=== PATIENT | female | born 1955 | race Caucasian/White ===

== ENCOUNTER 2022-06-25 12:46 | Outpatient (REF) | payer BC, SELFPAY ==
--- NOTE | ~2022-06-25 | XR_ITS ---
EXAMINATION: XR KNEES, BILATERAL AP STANDING XR KNEE, LEFT CLINICAL INFORMATION: Pain in left knee. COMPARISON: None. TECHNIQUE: AP upright view of both knees. Lateral and patella view of left knee. FINDINGS: LEFT KNEE: Medial Compartment: There are marginal osteophytes in the medial compartment with slight joint space narrowing indicative of ewmu-eb-emrrmulf osteoarthritis. Lateral Compartment: Small marginal osteophytes without joint space narrowing indicative of mild osteoarthritis. Patellofemoral Compartment: There are marginal osteophytes with mild joint space narrowing indicative of wusw-zd-ftrybrpb osteoarthritis. No effusion. 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 LIMITED AP UPRIGHT RIGHT KNEE: In the medial compartment, there are marginal osteophytes with slight joint space narrowing indicative of bone hjpc-ih-yrznfuck osteoarthritis. Lateral compartment is unremarkable. Patellar compartment is not assessed on this AP projection. 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 XR/XR knee LT 2V IMPRESSION: LEFT KNEE: Osteoarthritis. Osteopoikilosis. RIGHT KNEE LIMITED: Osteoarthritis. Osteopoikilosis.
--- NOTE | ~2022-06-25 | XR_ITS ---
EXAMINATION: XR KNEES, BILATERAL AP STANDING XR KNEE, LEFT CLINICAL INFORMATION: Pain in left knee. COMPARISON: None. TECHNIQUE: AP upright view of both knees. Lateral and patella view of left knee. FINDINGS: LEFT KNEE: Medial Compartment: There are marginal osteophytes in the medial compartment with slight joint space narrowing indicative of hwtw-ni-dxjhamdo osteoarthritis. Lateral Compartment: Small marginal osteophytes without joint space narrowing indicative of mild osteoarthritis. Patellofemoral Compartment: There are marginal osteophytes with mild joint space narrowing indicative of peer-ri-glbkdhao osteoarthritis. No effusion. 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 LIMITED AP UPRIGHT RIGHT KNEE: In the medial compartment, there are marginal osteophytes with slight joint space narrowing indicative of bone xcma-ef-sxrpxfdh osteoarthritis. Lateral compartment is unremarkable. Patellar compartment is not assessed on this AP projection. 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
== END 2022-06-25 12:47 | disposition home or self-care (01) ==
LOC: HO.HOSX 12:46
PROVIDERS: Visit Provider Physician Assistant
DX: M25.562 Pain in left knee (principal); M25.561 Pain in right knee
CPT/HCPCS: 73560; 73565

== ENCOUNTER 2022-11-08 05:51 | Outpatient (REF) | payer MEDICARE, SELFPAY | END 2022-11-08 05:52 | disposition home or self-care (01) | LOC: HO.HOSX 05:51 | PROVIDERS: Visit Provider Physician Assistant | DX: Z13.89 Encounter for screening for other disorder (principal) ==

== ENCOUNTER 2025-01-21 08:41 | Outpatient (REF) | payer MEDICARE, SELFPAY ==
--- NOTE | ~2025-01-21 | XR_ITS ---
EXAMINATION: XR KNEE 3 VIEWS LEFT HISTORY: M25.562 - Pain in left knee COMPARISON: Comparison is made with the prior examination dated 06/25/2022. FINDINGS: Standing AP views of both knees and lateral and sunrise patellar views of the left knee are submitted. Again seen are findings of osteopoikilosis. There is no fracture or dislocation. There is moderate osteoarthritis of the medial patellofemoral compartments, with joint space narrowing and osteophyte formation. There is moderate osteoarthritis of the medial compartment of the right knee. The soft tissues are unremarkable. There is no joint effusion. XR/XR knee LT 3V IMPRESSION: Moderate osteoarthritis of the medial patellofemoral compartments. Electronically signed by: Cordell Nguyen MD 01/22/2025 08:15 AM EDT
--- OUTSIDE RECORDS SUMMARY | 2025-01-21 09:17 | XMS_ITS | Encounter Summary ---
Author Organization [facility] Address [address] [place] [address] Phone Care Team Providers Care Oyster Opener Name Role Phone Nan Diaz PA-C Primary Care Provider [phone] Encounter Details Date Type Department Care Team (Late st Contact Info) Description 04/03/2024 Documentation Only [facility] [address] [place] [address] Ollie Chin DO [address] [facility] [place] [address] Social History Tobacco Use Types Packs/Day Years Used Date Smoking Tobacco: Former Cigarettes Alcohol Use Standard Drinks/Week Comments Not Currently 0 (1 standard drink = 0.6 oz pur e alcohol) Comments Unknown Sex and Gender Information Value Date Recorded Sex Assigned at Not on file Legal Sex Female 10:27 AM EDT Gender Identity Not on file Sexual Orientation Not on file documented as of this encounter Plan of Treatment Upcoming Encounters Date Type Department Care Team (Late st Contact Info) Description 04/02/2025 2:15 PM EDT Office Visit [facility] [address] [place] [address] Ollie Chin DO [address] [facility] [place] [address] documented as of this encounter Visit Diagnoses Not on filedocumented in this encounter Care Teams Oyster Opener Relationship Specialty Start Date End Date Nan Diaz PA-C [address] [place], [place] [id number] PCP - General Internal Medicine 07/24/22 documented as of this encounter
--- OUTSIDE RECORDS SUMMARY | 2025-01-21 09:17 | XMS_ITS | Continuity of Care Document ---
Author Organization Karlos Castillo [facility] Address [address] [address],[address] [place] [address] Phone Care Team Providers Care Fire Patroller Name Role Phone Zoila Stephen RDH Unavailable Unavailab le Procedures Procedure Date Case Presentation, Detailed And [...] Date Provider Providers Copied on Encounter Karlos [facility], [address] [place] [address],[address], [place], [place], [id number], [place] tel:[phone] 2 [facility] Encounter for dental exam and cleaning w/o abnormal findings 9 Hailee Cummings. [address], [place], [id number]. tel:[phone] Karlos Castillo [facility], [address] [place] [address],[address], [place], [place], [id number], [place] tel:[phone] 2 [facility] Encounter for dental exam and cleaning w/o abnormal findings 8 No Information Karlos Castillo [facility], [address] [facility] [address], [place], [place], [id number], tel:[phone] 2 [facility] Encounter for dental exam and cleaning w/o abnormal findings 8 No Information Karlos Castillo [facility], [address] [facility] [address] [address], [place], [place], [id number], tel:[phone] 2 [facility] Encounter for dental [...]
--- OUTSIDE RECORDS SUMMARY | 2025-01-21 09:17 | XMS_ITS | Clinical Summary ---
Author Organization [facility], Address [address] [place] [address] [place] [address] Phone Care Team Providers Care Senior Audit Manager Name Role Phone Nan Diaz PA-C Primary Care Provider [phone] Allergies Active Allergy Reactions Criticality Noted Date Comments Amoxicillin Other (see comments) High 08/11/2007 Dust Mite Extract Other (see comments) 03/31/20 09 Metronidazole 06/16/2019 Molds & Smuts Other (see comments) 03/31/2009 Peanut Butter Flavoring Agent (Non-Screening) High 06/25/2016 Penicillins Other (see comments) High 08/11/2007 Other reaction(s): hives Leni [place] Other (see comments) 03/31/20 09 Medications amLODIPine (NORVASC) 2.5 MG tablet Take 2.5 mg by mouth 1 (one) time each day 2 Active clonazePAM (KlonoPIN) 1 MG tablet Take 1 mg by mouth 2 Active DULoxetine (CYMBALTA) [address] capsule Take by mouth 1 (one) time each day 2 Active lamoTRIgine (LaMICtal) 150 MG tablet TAKE 1 TABLET BY MOUTH ONCE A DAY FOR MOOD STABILIZATION & AUGMENTATION DULOXETINE FOR DEPRESSION 2 Active rosuvastatin (CRESTOR) 20 MG tablet TAKE 1 TABLET BY MOUTH DAILY,X90 DAYS,INSTR:AFTER SUPPER DISCONTINUE ATORVASTATIN 2 Active Active Problems Problem Noted Date Diagnosed Date Stage 3a chronic kidney disease 10/05/2022 Hyperlipidemia 03/04/2019 Hypertensive disorder 03/04/2019 Immunizations Immunization Administration Dates Next Due Influenza, Unspecified 07/10/2013 Td, Unspecified 07/09/2008 Family History Medical History Relation Comments Cancer Father Stroke Mother Cancer Mother's Sister Relation Status Comments Father Mother Mother's Sister Social History Tobacco Use Types Packs/Day Years Used Date Smoking Tobacco: Former Cigarettes Tobacco Cessation:Counseling Given: Not Answered Alcohol Use Standard Drinks/Week Comments Not Currently 0 (1 standard drink = 0.6 oz pur e alcohol) Comments Unknown Sex and Gender Information Value Date Recorded Sex Assigned at Not on file Legal Sex Female 10:27 AM EDT Gender Identity Not on file Sexual Orientation Not on file Last Filed Vital Signs Vital Sign Reading Time Taken Comments Blood Pressure 124/80 04/03/2024 2:05 PM EDT Pulse 72 04/03/2024 2:05 PM EDT Temperature - - Respiratory Rate - - Oxygen Saturation - - Inhaled Oxygen Concentration - - Weight - - Height - - Body Mass Index - - Plan of Treatment Upcoming Encounters Date Type Department Care Team (Late st Contact Info) Description 04/02/2025 2:15 PM EDT Office Visit [facility] [address] [place] [address] Ollie Chin DO [address] [facility] [place] [address] Health Maintenance Due Date Last Done Comments Breast Cancer Screening 1954 Pneumococcal Vaccine: 50+ Ye ars (1 of 2 - PCV) 1973 Colorectal Cancer Screening: Annual FOBT 2003 Colorectal Cancer Screening: Colonoscopy 2003 Colorectal Cancer Screening: Sigmoidoscopy 2003 Influenza Vaccine (Season Ended) 2025 07/10/20 13 Hepatitis B Vaccine Aged Out No longe r eligible based on patient's age to complete this topic Insurance [facility] Care Teams Senior Audit Manager Relationship Specialty Start Date End Date Nan Diaz PA-C [address] [place] [address] PCP - General Internal Medicine 07/24/22
== END 2025-01-21 08:42 | disposition home or self-care (01) ==
LOC: HO.HOSX 08:41
PROVIDERS: Visit Provider Physician Assistant
DX: M17.12 Unilateral primary osteoarthritis, left knee (principal)
CPT/HCPCS: 20610; 73562; 99212; J1010; J2003

== ENCOUNTER 2025-01-21 13:49 | Outpatient (AMB) | payer MEDICARE, SELFPAY ==
--- NOTE | 2025-01-21 14:02 | A.OFFVIS_ITS ---
Vital Signs 01/21/25 14:05 Height 5 ft 3.5 in Weight 175 lb BMI 30.5 Intake Visit Reasons: OV-LT knee pain f/u Intake Note: Loan is a 66 year old female who presents today for a follow up of left knee OA pain. Patient reports pain in both of her knees, stating she has had a few falls. Her last fall was when she was walking on an uneven ground to stairs when she fell on the stairs. She fell forward on her hands and knees, injuring her knees and her right shoulder. Her knees give out especially her left knee, states when they give out she will have severe pain. Her pain is located at the anterior aspect of knees. Since her last visit she was given exercises that she performed however they are getting difficult to perform. Finds little relief with taking Tylenol. Allergies amoxicillin Allergy (Verified 01/21/25 14:06) Hives ampicillin Allergy (Verified 01/21/25 14:06) Hives levothyroxine Allergy (Verified 01/21/25 14:06) Unknown metronidazole [From Flagyl] Allergy (Verified 01/21/25 14:06) sick Penicillins Allergy (Verified 01/21/25 14:06) Hives Medication List - Last Reconciled 01/21/25 by Jan Markham PA-C amlodipine 2.5 mg PO DAILY clonazepam 1 mg PO TID duloxetine 20 mg PO BID ketorolac 0.5% 1 drp ophthalmic (eye) TID lamotrigine 200 mg PO DAILY prednisolone acetate 1% 1 drp ophthalmic (eye) TID rosuvastatin 40 mg PO DAILY sumatriptan succinate mg PO HPI HPI OV-LT knee pain f/u: Details: 69-year-old female returns to the office today for a follow-up left knee pain. She was last seen in June of 2022 where she was given a home exercise program. She states over the last few weeks she has noticed worsening symptoms with stairs and prolonged walking. [facility] Medical History (Updated 08/03/22 @ 12:54 by Marsha Kim NP) Stage 3 chronic kidney disease Hypothyroid Borderline diabetes High blood cholesterol High blood pressure Social History Housing: Apartment e-Cigarette/Vaping Use: Never Used service: No Current occupational status: retired Current occupational exposures/hazards: No Hearing needs: Yes Review of Systems Const All systems reviewed & are unremarkable except as noted in HPI and below Physical Exam Vital Signs: BMI result Body Mass Index 30.5 Const General: cooperative and no acute distress Orientation/consciousness: patient oriented x3 Resp Effort & Inspection: normal respiratory effort and able to speak in complete sentences Cardio Peripheral pulses: Peripheral pulses 2+ throughout Neuro General: patient oriented x3 Extrem Other: Left knee skin intact, no erythema or joint effusion. Tenderness along the medial / lateral joint line. ROM full with crepitus. Negative steinmans. No ligamentous laxity. NVI. Office Procedures AMB Joint Injection/Aspiration Joint Injection/Aspiration Primary Site: left knee Prep: site was prepped using aseptic technique, ethochloride spray was applied and injection warnings given Injected: 80 mg of, DepoMedrol, with 8 mL of, 1% plain lidocaine and in the joint Approach Used: anterolateral Procedure: The patient tolerated the procedure well and there was some relief with the local anesthesia Coding 07469 - Glenohumeral/Tronchanteric Bursa/Intraarticular Procedure code (CPT) selection complete Results Reviewed Results Reviewed: X-rays of the left knee obtained in the office today and reviewed by me are significant for moderate arthritis through the medial and patellofemoral joint Assessment & Plan Assessment & Plan (1) Osteoarthritis of left knee: Code(s): M17.12 - Unilateral primary osteoarthritis, left knee Category: Medical Plan: We discussed options today which include steroid injection of the left knee to help with her inflammation and discomfort. She did consent to proceed with left knee steroid injection which was tolerated well. She can increase activities as tolerated. We discussed the importance of working with her home exercise program. She will see me back as needed unless symptoms arise. Orders: Orders XR knee LT 3V 01/21/25 M25.562 - Pain in left knee Coding Level of Care Code Est Pt Level 3 (84770) Complex EM visit Add On G2211 Diagnoses Osteoarthritis of left knee M17.12 CPT Codes Coding - Joint 7: 51190 - Glenohumeral/Tronchanteric Bursa/Intraarticular ([id number])
[2025-01-21 14:05] VITALS: BMI 30.5
--- OUTSIDE RECORDS SUMMARY | 2025-01-21 16:54 | XMS_ITS | Clinical Summary ---
Author Organization [facility], Address [address] [place] [address] [place] [address] Phone Care Team Providers Care Circulating Process Inspector Name Role Phone Nan Diaz PA-C Primary Care Provider [phone] Allergies Active Allergy Reactions Criticality Noted Date Comments Amoxicillin Other (see comments) High 08/11/2007 Dust Mite Extract Other (see comments) 03/31/20 09 Metronidazole 06/16/2019 Molds & Smuts Other (see comments) 03/31/2009 Peanut Butter Flavoring Agent (Non-Screening) High 06/25/2016 Penicillins Other (see comments) High 08/11/2007 Other reaction(s): hives Leni [place] Other (see comments) 03/31/20 09 Medications amLODIPine [...] Visit [facility] [address] [place] [phone] Ollie Chin DO [address] [facility] [place] [address] Health Maintenance Due Date Last Done Comments Breast Cancer Screening 1954 Pneumococcal Vaccine: 50+ Ye ars (1 of 2 - PCV) 1973 Colorectal Cancer Screening: Annual FOBT 2003 Colorectal Cancer Screening: Colonoscopy 2003 Colorectal Cancer Screening: Sigmoidoscopy 2003 Influenza Vaccine (Season Ended) 2025 07/10/20 13 Hepatitis B Vaccine Aged Out No longe r eligible based on patient's age to complete this topic Insurance [facility] Care Teams Circulating Process Inspector Relationship Specialty Start Date End Date Nan Diaz PA-C [address] [place] [address] PCP - General Internal Medicine 07/24/22
--- OUTSIDE RECORDS SUMMARY | 2025-01-21 16:54 | XMS_ITS | Continuity of Care Document ---
Author Organization Karlos Castillo [facility] Address [address] [address],[address] [place] [address] Phone Care Team Providers Care Zoo Director Name Role Phone Zoila Stephen RDH Unavailable [...] Date Provider Providers Copied on Encounter Karlos [facility], [address] [place] [address],[address], [place], [place], [id number], [place] tel:[phone] 2 [facility] Encounter for dental exam and cleaning w/o abnormal findings 9 Hailee Cummings. [address] [place], [place], [id number]. tel:[phone] Karlos Castillo [facility], [address] [place] [address],[address], [place], [place], [id number], [place] tel:[phone] 2 [facility] Encounter for dental exam and cleaning w/o abnormal findings 8 No Information Karlos Castillo [facility], [address] [facility] [address], [place], [place], [id number], tel:[phone] 2 [facility] Encounter for dental exam and cleaning w/o abnormal findings 8 No Information Karlos Castillo [facility], [address] [facility] [address], [place], [place], [id number], tel:[phone] 2 [facility] Encounter for dental [...]
--- OUTSIDE RECORDS SUMMARY | 2025-01-21 16:54 | XMS_ITS | Encounter Summary ---
Author Organization [facility] Address [address] [place] [address] Phone Care Team Providers Care End Touching Machine Operator Name Role Phone Nan Diaz PA-C Primary Care Provider [phone] Encounter Details Date Type Department Care Team (Late st Contact Info) Description 04/03/2024 Documentation Only [facility] [address] [place] [address] Ollie Chin DO [address] [facility] [place] [address] Social History Tobacco Use Types [...] Visit [facility] [address] [place] [address] Ollie Chin DO [address] [facility] [place] [address] documented as of this encounter Visit Diagnoses Not on filedocumented in this encounter Care Teams End Touching Machine Operator Relationship Specialty Start Date End Date Nan Diaz PA-C [address] [place], [place] [id number] PCP - General Internal Medicine 07/24/22 documented as of this encounter
== END 2025-01-21 15:31 | disposition home or self-care (01) ==
LOC: HO.HOS 13:50
PROVIDERS: Visit Provider Physician Assistant
DX: M17.12 Unilateral primary osteoarthritis, left knee (principal)
CPT/HCPCS: 20610; 99213

== ENCOUNTER → 2025-01-21 13:52 | Outpatient (BNV) | payer MEDICARE, SELFPAY | PROVIDERS: Visit Provider Radiology Diagnostic Radiology | DX: M17.12 Unilateral primary osteoarthritis, left knee (principal) | CPT/HCPCS: 73562 ==

== ENCOUNTER 2025-03-04 12:46 | Outpatient (REF) | payer MEDICARE, SELFPAY ==
--- NOTE | ~2025-03-04 | XR_ITS ---
EXAMINATION: XR SHOULDER 2 OR MORE VIEWS RIGHT HISTORY: M25.511 - Pain in right shoulder COMPARISON: There are no prior studies available for comparison. FINDINGS: Three views of the right shoulder are submitted. Osseous mineralization is normal. There is no fracture or dislocation. The joint spaces are preserved. The soft tissues are unremarkable. XR/XR shoulder RT min 2V IMPRESSION: Unremarkable examination of the right shoulder. Electronically signed by: Cordell Nguyen MD 03/04/2025 03:39 PM EDT
--- OUTSIDE RECORDS SUMMARY | 2025-03-04 12:49 | XMS_ITS | Clinical Summary ---
Author Organization [facility], Address [address] [place] [address] [place] [address] Phone Care Team Providers Care Sign Out Clerk Name Role Phone Nan Diaz PA-C Primary Care Provider [phone] Allergies Active Allergy Reactions Criticality Noted Date Comments Amoxicillin Other (see comments) High 08/11/2007 Dust Mite Extract Other (see comments) 03/31/20 09 Metronidazole 06/16/2019 Molds & Smuts Other (see comments) 03/31/2009 Peanut Butter Flavoring Agent (Non-Screening) High 06/25/2016 Penicillins Other (see comments) High 08/11/2007 Other reaction(s): hives Leni [place] Other (see comments) 03/31/20 09 Medications amLODIPine [...] Visit [facility] [address] [place] [id number] Ollie Chin DO [address] [facility] [place] [phone] Health Maintenance Due Date Last Done Comments Breast Cancer Screening 1955 Pneumococcal Vaccine: 50+ Ye ars (1 of 2 - PCV) 1973 Colorectal Cancer Screening: Annual FOBT 2003 Colorectal Cancer Screening: Colonoscopy 2003 Colorectal Cancer Screening: Sigmoidoscopy 2003 Influenza Vaccine (Season Ended) 2025 07/10/20 13 Hepatitis B Vaccine Aged Out No longe r eligible based on patient's age to complete this topic Insurance [facility] Care Teams Sign Out Clerk Relationship Specialty Start Date End Date Nan Diaz PA-C [address] [place] [phone] PCP - General Internal Medicine 07/24/22
== END 2025-03-04 12:47 | disposition home or self-care (01) ==
LOC: HO.HOSX 12:46
PROVIDERS: Visit Provider Physician Assistant
DX: M25.511 Pain in right shoulder (principal); M19.011 Primary osteoarthritis, right shoulder; S29.011A Strain of muscle and tendon of front wall of thorax, initial encounter; W18.30XA Fall on same level, unspecified, initial encounter; Y93.9 Activity, unspecified; Y92.9 Unspecified place or not applicable; Y99.9 Unspecified external cause status
CPT/HCPCS: 73030; 99212

== ENCOUNTER 2025-03-04 13:52 | Outpatient (AMB) | payer MEDICARE, SELFPAY ==
--- NOTE | 2025-03-04 13:54 | A.OFFVIS_ITS ---
Vital Signs 03/04/25 14:49 Height 5 ft 3.5 in Weight 175 lb BMI 30.5 Intake Visit Reasons: New prob-RT shoulder/clavicle pain Intake Note: Loan is a 69 year old right hand dominant female who presents today with complaints of right shoulder/clavicle pain. At her last visit for her left knee on 01/21/25 she complained of pain in her right shoulder from the same falls. Her PCP referred her to orthopedics. Patient reports she fell on outstretched arms causing her clavicle to pop out. She has had improvement in her pain however she continues to have intermittent pain in her clavicle area. No other treatment. 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 Allergies amoxicillin Allergy (Verified 03/04/25 14:55) Hives ampicillin Allergy (Verified 03/04/25 14:55) Hives levothyroxine Allergy (Verified 03/04/25 14:55) Unknown metronidazole [From Flagyl] Allergy (Verified 03/04/25 14:55) sick Penicillins Allergy (Verified 03/04/25 14:55) Hives Medication List - Last Reconciled 03/04/25 by Jan Markham PA-C amlodipine 2.5 mg PO DAILY clonazepam 1 mg PO TID duloxetine 20 mg PO BID ketorolac 0.5% 1 drp ophthalmic (eye) TID lamotrigine 200 mg PO DAILY prednisolone acetate 1% 1 drp ophthalmic (eye) TID rosuvastatin 40 mg PO DAILY sumatriptan succinate mg PO HPI HPI New prob-RT shoulder/clavicle pain: Details: 69-year-old female presents to the office today for pain in the right clavicle region. She mentions a fall she had where she landed on her hands and immediately felt a discomfort in her right sternal clavicular joint. She states the discomfort has resolved however she has some intermittent discomfort with activity. [facility] Medical History (Updated 03/04/25 @ 15:44 by Jan Markham PA-C) Stage 3 chronic kidney disease Hypothyroid Borderline diabetes High blood cholesterol High blood pressure Social History Housing: Apartment e-Cigarette/Vaping Use: Never Used service: No Current occupational status: retired Current occupational exposures/hazards: No Hearing needs: Yes Review of Systems Const All systems reviewed & are unremarkable except as noted in HPI and below Physical Exam Vital Signs: BMI result Body Mass Index 30.5 Const General: cooperative and no acute distress Orientation/consciousness: patient oriented x3 Resp Effort & Inspection: normal respiratory effort and able to speak in complete sentences Cardio Peripheral pulses: Peripheral pulses 2+ throughout Neuro General: patient oriented x3 Extrem Other: Right shoulder is normal to inspection there is no bony abnormality along the AC joint clavicle or sternoclavicular joint. She has no tenderness to palpation along these areas. She has full range of motion of the shoulder. Neurovascularly intact. Results Reviewed Results Reviewed: X-rays of the right shoulder obtained in the office today and reviewed by me show mild AC joint arthritis. No acute fractures or dislocations. Assessment & Plan Assessment & Plan (1) Sternoclavicular joint strain: Code(s): S29.011A - Strain of muscle and tendon of front wall of thorax, initial encounter Category: Medical Plan: reassurance was given to the patient there is no evidence of fracture or dislocation. I educated her on avoiding excessive lifting or repetitive motions that would irritate this area. I did recommend a course of physical therapy to work on motion and strength however she declined. If there is an increase in symptoms where she has concerns she can contact our office otherwise she will follow up as needed. Orders: Orders XR shoulder RT min 2V Today M25.511 - Pain in right shoulder Coding Level of Care Code Est Pt Level 3 (87458) Complex EM visit Add On G2211 Diagnoses Sternoclavicular joint strain S29.011A
[2025-03-04 14:49] VITALS: BMI 30.5
== END 2025-03-04 15:29 | disposition home or self-care (01) ==
LOC: HO.HOS 13:52
PROVIDERS: Visit Provider Physician Assistant
DX: S29.011A Strain of muscle and tendon of front wall of thorax, initial encounter (principal)
CPT/HCPCS: 99213; G2211

== ENCOUNTER → 2025-03-04 14:37 | Outpatient (BNV) | payer MEDICARE, SELFPAY | PROVIDERS: Visit Provider Radiology Diagnostic Radiology | DX: M25.511 Pain in right shoulder (principal) | CPT/HCPCS: 73030 ==

== ENCOUNTER 2025-07-12 14:34 | Outpatient (AMB) | payer MEDICARE, SELFPAY ==
--- OUTSIDE RECORDS SUMMARY | 2019-06-04 08:00 | XMS_ITS | Continuity of Care Document ---
Author Organization Karlos Castillo [facility] Address [address] [address],[address] [place] [address] Phone Care Team Providers Care Test Kitchen Home Economist Name Role Phone Unavailable Unavailable Unavailable Procedures [...] Provider Providers Copied on Encounter Karlos Castillo [facility], [address] [place] [address],[facility] [address], [place], [id number], tel:[phone] 2 [facility] Encounter for dental exam and cleaning w/o abnormal findings 9 No Information Karlos Castillo [facility], [address] [place] [address],[facility] 200, [place], [place], [id number], [place] tel:[phone] 2 [facility] Encounter for dental exam and cleaning w/o abnormal findings 8 No Information Karlos Castillo [facility], [address] [place] [address],[facility] 200, [place], [place], [id number], tel:[phone] 2 [facility] Encounter for dental exam and cleaning w/o abnormal findings 8 No Information Karlos Castillo [facility], [address] [facility],[address], [place], [place], [id number], tel:[phone] 2 [facility] Encounter for dental exam and cleaning w/o abnormal findings 8 No Information Family History Family Member Type Diagnosis Age At Onset No Information Payers Payer name Insurance type Covered green party ID Authoriza tion(s) No Information Social History [...]
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
[2025-07-12 15:10] VITALS: BMI 30.5
--- OUTSIDE RECORDS SUMMARY | 2025-07-12 17:01 | XMS_ITS | Encounter Summary ---
Author Organization [facility] Address [address] [place] [address] Phone Care Team Providers Care Audio Visual Coordinator Name Role Phone Cordell Cline MD Unavailable [phone] Mathew Gilbert MD, PhD Unavailable Unknown, Unknown Primary Care Provider Eldon dickerson Encounter Details Date Type Department Care Team (Late st Contact Info) Description 04/16/2025 Telephone [facility] Neurology [address] [place] [address] Xavier Galvez MD [address] [place] [address] [email or web address] Social History Tobacco Use Types Packs/Day Years Used Date Smoking Tobacco: Former Cigarettes 2 15 0 10/07/1966 - 10/07/1981 Smokeless Tobacco: Never Alcohol Use Standard Drinks/Week Comments Never 0 (1 standard drink = 0.6 oz pur e alcohol) Education Answer Date Recorded Are you interested in more education? Not on laura e 02/09/2023 Are you concerned about learning? Not on file 02/09/2023 No 02/09/2023 No 02/09/2023 Digital Access Answer Date Recorded No 03/02/2023 No 03/02/2023 Reliable internet access at home? Not on file 03/02/2023 Device with a working camera? Not on file Comments No Sex and Gender Information Value Date Recorded Sex Assigned at Not on file Legal Sex Female 5:34 PM EST Gender Identity Not on file Sexual Orientation Not on file documented as of this encounter Progress Notes * Cheryl Ewing - 04/16/2025 1:31 PM EDT Pt called and does not want to do the sleep study any where. She also says that the rizatriptan (MAXALT) 10 MG tablet is not helping her at all She says she needs something for the daily headaches that she is having and are getting worse. Is questioning if she should keep her upcoming appt with Dr Galvez documented in this encounter Plan of Treatment Not on file documented as of this encounter Visit Diagnoses Not on filedocumented in this encounter Additional Health Concerns Assessment Noted Time PHQ-2 Depression Total Score: 0 08/22/20 20 4:25 PM EST documented as of this encounter Care Teams Audio Visual Coordinator Relationship Specialty Start Date End Date Unknown, Unknown, MD PCP - General 11/08/21 Cordell Cline MD [address] [place] [address] [place] [address] Historical LMR Provider 12/18/18 Mathew Gilbert MD, PhD [address] [place] [address]. [address] [place] [address] [email or web address] Historical LMR Provider 12/18/18 documented as of this encounter Additional Source Comments The information contained in this document represents components of the legal health record. It is not the complete legal health record.[facility]
--- OUTSIDE RECORDS SUMMARY | 2025-07-12 17:01 | XMS_ITS | Encounter Summary ---
Author Organization [facility] Address [address] [place] [address] Phone Care Team Providers Care Telecommunications Line Installer Name Role Phone Nan Diaz PA-C Primary Care Provider [phone] Encounter Details Date Type Department Care Team (Late st Contact Info) Description 04/03/2024 Documentation Only [facility] [address] [place] [address] Ollie Chin DO [address] [facility] [place] [address] Social History Tobacco Use Types [...] Care Team (Late st Contact Info) Description 03/30/2026 2:00 PM EDT Office Visit [facility] [address] [place] [address] Ollie Chin DO [address] [facility] [place] [address] documented as of this encounter Visit Diagnoses Not on filedocumented in this encounter Care Teams Telecommunications Line Installer Relationship Specialty Start Date End Date Nan Diaz PA-C [address] [place], [place] [phone] PCP - General Internal Medicine 07/24/22 documented as of this encounter
--- OUTSIDE RECORDS SUMMARY | 2025-07-12 17:01 | XMS_ITS | Clinical Summary ---
Author Organization [facility] Address [address] [facility] [address] [place] [address] Phone Care Team Providers Care Pole Setter Name Role Phone Cordell Cline MD Unavailable [phone] Mathew Cohen MD, PhD Unavailable [phone] Unknown, Unknown Primary Care Provider Eldon dickerson Allergies Active Allergy Reactions Criticality Noted Date Comments Amoxicillin Unknown High 08/11/2007 Ampicillin Unknown High 08/11/2007 Metronidazole 06/16/2019 House Dust Unknown 03/31/2009 Levothyroxine 03/05/2025 Mold Extracts Unknown 03/31/2009 Holcomb Unknown 03/31/2009 Peanut Butter Flavor High 06/25/2016 Penicillins Medium 03/20/2010 Other reaction(s): hives Phs Other Free Text-See Phs Viewer 03/31/2009 DUST MITES; GRASS Pollen Extracts 02/29/2016 Sulfamethoxazole-Trimethoprim 2024 Tetracycline 03/05/2025 Medications biotin 5 mg Cap Take 5,000 capsules by mouth daily. 8 Active omeprazole (PRILOSEC) 20 mg TbEC Take 20 mg by mouth daily before breakfast. Active therapeutic multivitamin tablet Take 1 tablet by mouth daily. Active lamoTRIgine (LAMICTAL) 200 MG tablet Take 150 mg by mouth 2 (two) times a day. 0 Active clonazePAM (KLONOPIN) 1 MG tablet Take 1 mg by mouth 3 (three) times a day as needed. 1 Active DULoxetine (CYMBALTA) 60 MG capsule 60 mg. 1 Active amLODIPine (NORVASC) 2.5 MG tabletIndication s:Hypertensive disorder TAKE 1 TABLET DAILY 90 tablet 1 1 Active atorvastatin (LIPITOR) 40 MG tabletIndication s:Hyperlipidemia TAKE 1 TABLET (40 MG TOTAL) BY MOUTH DAILY. INCREASED DOSE 90 tablet 3 1 Active Additional Information Patient not taking.Reported on 03/05/2025 methylPREDNISolo ne (MEDROL, NICKIE,) 4 mg tablet follow package directions 21 tablet 1 Active Additional Information Patient not taking.Reported on 03/05/2025 rosuvastatin (CRESTOR) 20 MG tablet Take 20 mg by mouth daily. Active DULoxetine (CYMBALTA) 20 MG capsule Take 20 mg by mouth 2 (two) times a day. 5 Active rimegepant (NURTEC) 75 mg tablet Take 1 tablet (75 mg total) by mouth every other day. 16 tablet 5 5 Active riboflavin, vitamin B2, 400 mg Tab Take 1 tablet (400 mg total) by mouth daily. 90 tablet 3 5 Active rizatriptan (MAXALT) 10 MG tablet TAKE 1 TABLET BY MOUTH NEEDED FOR MIGRAINE (MAX DOSE 20MG DAILY). MAY REPEAT IN 2 HOURS IF NEEDED 9 tablet 2 5 Active Active Problems Problem Noted Date Diagnosed Date Pain in thoracic spine 11/27/2019 Assessment & Plan (11/27/2019 4:58 PM EST): Patient likely with pain secondary to arthritis in the thoracic spine. X-ray ordered. Physical therapy ordered. UA ordered to ensure that there is no nephrolithiasis. printed out a back brace image that can be bought on [employer]. Primary osteoarthritis of both knees 05/06/2019 Hypertensive disorder 03/04/2019 Hyperlipidemia 03/04/2019 Depressive disorder 03/04/2019 Encounters Date Type Department Care Team Description 06/07/2025 Refill [facility] Neurology [address] [place] [address] Xavier Galvez MD Medication Refill 05/24/2025 Telephone [facility] [place] [address] [facility] [address] [place] [address] Xavier Galvez MD 04/27/2025 2:15 PM EDT Telemedicine - audio only [facility] Neurology [address] [place] [address] Xavier Galvez MD Chronic migraine without aura with status migrainosus, not intractable (Primary Dx) 04/16/2025 Telephone [facility] Neurology [address] [place] [address] Xavier Galvez MD 04/15/2025 Telephone [facility] Neurology [address] [place] [address] Xavier Galvez MD from Last 3 Months Immunizations Immunization Administration Dates Next Due COVID-19 (Pre-07/29) Moderna Vaccine, mRNA, PF 0 10/23/2021 COVID-19 (Pre-07/29) Pfizer Vaccine, Bivalent 12 + 09/05/2022 Influenza, Unspecified Formulation 07/10/2013 Td, unspecified formulation 07/09/2008 Family History Medical History Relation Comments Brain cancer Father 1967 br ain cancer Cancer Father Family history o f cancer Celiac disease Father Coronary artery disease Mother FH: stanley ature coronary heart disease Stroke Mother Family history o f stroke, cerebrovascular accident after CABG @ 91 Depression Sister 1 Diabetes Sister 1 Diabetes mellitus Sister 1 Diabetes type I Sister 1 Family history o f diabetes mellitus type 1 Celiac disease Sister 2 Depression Sister 2 Depression Sister 3 Depression Sister 4 Depression Sister 5 Relation Status Comments Father 1967 Mother Sister 1 Other Sister 2 Other Sister 3 Other Sister 4 Other Sister 5 Other Social History Tobacco Use Types Packs/Day Years Used Date Smoking Tobacco: Former Cigarettes 2 15 0 10/07/1966 - 10/07/1981 Smokeless Tobacco: Never Tobacco Cessation:Counseling Given: Not Answered Alcohol Use Standard Drinks/Week Comments Never 0 [...] Sign Reading Time Taken Comments Blood Pressure 120/72 07/25/2021 12:54 PM EDT Pulse 79 07/25/2021 12:54 PM EDT Temperature 36.6 C (97.9 F) 04/22/2021 1:41 PM EDT Respiratory Rate 16 04/22/2021 1:41 PM EDT Oxygen Saturation 98% 07/25/2021 12:54 PM EDT Inhaled Oxygen Concentration - - Weight 76.2 kg (168 lb) 03/05/2025 1:14 PM EDT Height 158.1 cm (5' 2.24 ) 03/05/2025 1:14 PM ED T Body Mass Index 30.49 03/05/2025 1:14 PM EDT Plan of Treatment Health Maintenance Due Date Last Done Comments BLOOD PRESSURE 1955 HEPATITIS C SCREENING 1972 COLOGUARD 1999 COLONOSCOPY 1999 COLORECTAL CANCER SCREENING 1999 FIT TEST 1999 FOBT 1999 SIGMOIDOSCOPY 1999 VIRTUAL COLONOSCOPY 1999 PNEUMOCOCCAL VACCINES (50+ years) (1 of 1 - PCV) 2004 ZOSTER VACCINES (1 of 2) 2004 Adult Td,Tdap Booster 07/09/2018 07/09/2008 OSTEOPOROSIS SCREENING INITIAL (ONE-TIME) 2019 06/23/2013 DEPRESSION SCREENING 08/22/2021 08/22/2020 MAMMOGRAM 08/05/2022 08/05/2020, 06/08, 06/27/2018, Additional history exists INFLUENZA VACCINE (#1) 2025 07/10/2013 COVID-19 VACCINE ( season) 2025 09/05/2022, 10/23/2021, 04/13/2021, Additional history exists LIPID PANEL 09/02/2025 09/02/2020, 02/06, 03/05/2018, Additional history exists RSV VACCINE (1 - 1-dose 75+ series) 2029 SMOKING STATUS SCREENING (Once After 26 Yrs) Completed 03/05/2025 HEPATITIS A VACCINES Aged Out No long er eligible based on patient's age to complete this topic HIB VACCINES Aged Out No longer eligi ble based on patient's age to complete this topic MENINGOCOCCAL VACCINES (ACWY) Aged Out No longer eligible based on patient's age to complete this topic MENINGOCOCCAL VACCINES (B) Aged Out N o longer eligible based on patient's age to complete this topic Medical Devices Not on file Procedures Procedure Name Priority Date/Time Associated Diagnosis Comments LIPID PANEL Routine 09/02/2020 9:17 AM EST Annual physical exam BI MAMMOGRAM SCREENING WITH TOMOSYNTHESIS WITH CAD (BILATERAL) 08/05/2020 3:43 PM EDT BD DXA FOREARM Routine 06/23/2013 1:23 PM EDT from Last 3 Months or Most Recently Relevant to Health Maintenance Results * (ABNORMAL) Lipid panel (09/02/2020 9:17 AM EST) Cholesterol 220(H) <200 mg/dL [facility] Triglycerides 105 <150 mg/dL [facility] HDL Cholesterol 55 >50 mg/dL [facility] LDL Cholesterol Calculated 144(H) <100 mg/dL [facility] Chol HDL Ratio 4.0 <5.0 [facility] 09/02/2020 9:17 AM EST Isaac Hawkins MD LAB BLOOD ORDERABLES Final Resu lt Performing Organization Address City/State/[facility] Co de Phone Number [address] [address], [place] [phone] * Mammogram Screening With Tomosynthesis With CAD (Bilateral) (08/05/2020 3:43 PM EDT) Anatomical Region Laterality Modality Breast Left, Breast Right, Breast Bilateral Bila teral Mammography 08/05/2020 3:43 PM EDT Narrative 08/05/2020 3:49 PM EDT [address] [address] Mammography Report Signed Patient: Loan Martinez MR#: [id number] : 1955 Acct:[id number] Age/Sex: 64 / F ADM Date: 08/05/20 Loc: [facility] Attending Dr: Isaac Hawkins MD Ordering Physician: Isaac Hawkins Results: 0Incomple te: Need additional imaging evaluation Date of Service: 08/05/20 Follow Up: Immediate Follo w-Up Recommended Procedure(s): MM screening combo BI Accession Number(s): [id number] cc: Isaac Hawkins EXAMINATION: BILATERAL SCREENING MAMMOGRAPHY WITH DIGITAL TOMOSYNTHESIS HISTORY: Routine screening mammogram; no complaints today. COMPARISON: Prior exams dating back at least two years. TECHNIQUE: Bilateral digital craniocaudad and oblique projections. Computer aided detection utilized, using CAD : R2, version 2.1. Computer algorithm analysis of digital image data for lesion detection with further physician review for interpretation performed. Digital 3-D tomosynthesis images are obtained in CC and MLO projections. Breast Composition: (B) There are scattered fibroglandular densities. FINDINGS: 7 mm circumscribed mass is seen in the right outer breast. Otherwise, no suspicious masses, clustered microcalcifications or areas of architectural distortion are seen. MM/MM screening combo BI IMPRESSION: Mass in the right outer breast. The patient will be contacted by our department to schedule an appointment for a diagnostic mammogram and possible subsequent ultrasound. BI-RADS 0 - Incomplete: Need additional imaging evaluation. Follow-up code I workstation: Electronically signed by: Dr. Maxwell Madden Date: 08/05/20 Time: 15:48 Dictated By: Maxwell Madden MD Signed By: <Electronically signed by Maxwell Madden MD in OV> 08/05/20 1548 Procedure Note Maxwell Madden MD - 08/05/2020 [facility] [address] [place] [address] Mammography Report Signed Patient: Loan Martinez MR#: [id number] : 5Acct:[id number] Age/Sex: 64 / F ADMDate: 08/05/20 Loc: [facility] Attending Dr: Isaac Hawkins MD Ordering Physician: Isaac HawkinsResults: 0Incomple te: Need additional imaging evaluation Date of Service: 08/05/20Follow Up: Immediate Follo w-Up Recommended Procedure(s): MM screening combo BI Accession Number(s): [id number] cc: Isaac Hawkins EXAMINATION: BILATERAL SCREENING MAMMOGRAPHY WITH DIGITAL TOMOSYNTHESIS HISTORY: Routine screening mammogram; no complaints today. COMPARISON: Prior exams dating back at least two years. TECHNIQUE: Bilateral digital craniocaudad and oblique projections. Computer aided detection utilized, using CAD : R2, version 2.1. Computer algorithm analysis of digital image data for lesion detection with further physician review for interpretation performed. Digital 3-D tomosynthesis images are obtained in CC and MLO projections. Breast Composition: (B) There are scattered fibroglandular densities. FINDINGS: 7 mm circumscribed mass is seen in the right outer breast. Otherwise, no suspicious masses, clustered microcalcifications or areas of architectural distortion are seen. MM/MM screening combo BI IMPRESSION: Mass in the right outer breast. The patient will be contacted by our department to schedule an appointment for a diagnostic mammogram and possible subsequent ultrasound. BI-RADS 0 - Incomplete: Need additional imaging evaluation. Follow-up code I workstation: Electronically signed by: Dr. Maxwell Madden Date: 08/05/20 Time: 15:48 Dictated By: Maxwell Madden MD Signed By: <Electronically signed by Maxwell Madden MD in OV> 08/05/20 1548 us Isaac Hawkins MD IMG MG EXAMS Final Result * DXA Peripheral (06/23/2013 1:23 PM EDT) Anatomical Region Laterality Modality Bone Density Bone Density 06/23/2013 1:23 PM EDT Narrative 06/23/2013 1:23 PM EDT Exam Number: [id number] Report Status: Signed Type: BONE DENSITY Date/Time: 06/23/2013 13:23 Ordering Provider: DAVE COHEN REPORT: [address] [address] DXA BONE DENSITY STUDY HISTORY: Estrogen deficiency TECHNIQUE: Bone density measurements of the lumbar spine, hip, and forearm were obtained using a HOLOGIC QDR #[id number]. FINDINGS: L1-L4 BMD= 1.255 g/cm2, which is 120 % of the young adult controls for a T value of 1.9. This value is 139 % of age matched controls for a Z value of 3.2. Femoral neck BMD = 0.890 g/cm2, which is 105 % of young adult controls for a T value of 0.4. This value is 125 % of age matched controls for a Z value of 1.6. Forearm BMD = 0.624 g/cm2, which is 108 % of young adult controls for a T value of 0.8. This value is 121 % of age matched controls for a Z value of 2.0. IMPRESSION: Lumbar spine BMD is within normal range, with worsening since previous study of 04/23/07, with the BMD having worsened from 1.314 to 1.255. Femoral neck BMD is within normal range, with worsening since previous study of 04/23/07, with the BMD having worsened from 0.994 to 0.890. Forearm BMD is within normal range, with slight worsening since previous study of 04/23/07, with the BMD having worsened from 0.629 to 0.624. For every one standard deviation below the peak bone density mass (T score) the risk of osteoporotic bone fracture increases by 1.5 - 2 times. Note: A 10% increase in bone density corresponds to a 50% reduction in fracture risk. OLD STUDIES: LUMBAR SPINE SCAN DATE/AGE/ BMD/ T-SCORE / BMD CHANGE V BASELINE/ BMD CHANGE V PREVIOUS 06/23/13 57 1.255 1.9 -4.5% -4.5% 04/23/07 51 1.314 2.4 HIP SCAN DATE/AGE/ BMD/ T-SCORE / BMD CHANGE V BASELINE/ BMD CHANGE V PREVIOUS 06/23/13 57 0.890 0.4 -10.5% -10.5% 04/23/07 51 0.994 1.3 FOREARM SCAN DATE/AGE/ BMD/ T-SCORE / BMD CHANGE V BASELINE/ BMD CHANGE V PREVIOUS 06/23/13 57 0.624 0.8 -0.9% -0.9% 04/23/07 51 0.629 0.9 Electronically signed by: Christo Recinos MD Date: 06/23/13 Time: 13:36 Dictated: 06/23/13 133 Signed: 06/23/13 1336 ---- Electronic Signature on File ---- Signed By: Christo Recinos MD Procedure Note Sys, Conversion Provider Not In - 05/12/2015 Exam Number: [id number] Report Status: Signed Type: BONE DENSITY Date/Time: 06/23/2013 13:23 Ordering Provider: DAVE COHEN REPORT: [address] [id number] DXA BONE DENSITY STUDY HISTORY: Estrogen deficiency TECHNIQUE: Bone density measurements of the lumbar spine, hip, and forearm were obtained using a HOLOGIC QDR #[id number]. FINDINGS: L1-L4 BMD= 1.255 g/cm2, which is 120 % of the young adult controls for a T value of 1.9. This value is 139 % of age matched controls for a Z value of 3.2. Femoral neck BMD = 0.890 g/cm2, which is 105 % of young adult controls for a T value of 0.4. This value is 125 % of age matched controls for a Z value of 1.6. Forearm BMD = 0.624 g/cm2, which is 108 % of young adult controls for a T value of 0.8. This value is 121 % of age matched controls for a Z value of 2.0. IMPRESSION: Lumbar spine BMD is within normal range, with worsening since previous study of 04/23/07, with the BMD having worsened from 1.314 to 1.255. Femoral neck BMD is within normal range, with worsening since previous study of 04/23/07, with the BMD having worsened from 0.994 to 0.890. Forearm BMD is within normal range, with slight worsening since previous study of 04/23/07, with the BMD having worsened from 0.629 to 0.624. For every one standard deviation below the peak bone density mass (T score) the risk of osteoporotic bone fracture increases by 1.5 - 2 times. Note: A 10% increase in bone density corresponds to a 50% reduction in fracture risk. OLD STUDIES: LUMBAR SPINE SCAN DATE/AGE/ BMD/ T-SCORE / BMD CHANGE V BASELINE/ BMD CHANGE V PREVIOUS 06/23/13 57 1.255 1.9 -4.5% -4.5% 04/23/07 51 1.314 2.4 HIP SCAN DATE/AGE/ BMD/ T-SCORE / BMD CHANGE V BASELINE/ BMD CHANGE V PREVIOUS 06/23/13 57 0.890 0.4 -10.5% -10.5% 04/23/07 51 0.994 1.3 FOREARM SCAN DATE/AGE/ BMD/ T-SCORE / BMD CHANGE V BASELINE/ BMD CHANGE V PREVIOUS 06/23/13 57 0.624 0.8 -0.9% -0.9% 04/23/07 51 0.629 0.9 Electronically signed by: Christo Recinos MD Date: 06/23/13 Time: 13:36 Dictated: 06/23/13 1332 Signed: 06/23/13 1336 ---- Electronic Signature on File ---- Signed By: Christo Recinos MD us Mathew Cohen MD, PhD IMG BD BONE DENSITY DEXA Fi nal Result from Last 3 Months or Most Recently Relevant to Health Maintenance Insurance [facility] MEDICARE PPO BLUE [address] [address] [place] [address] MEDICARE PPO BLUE REPLACEMENT [address] [place] [id number] [address] [place] [id number] Advance Directives For more information, please contact: [phone] (9AM - 5PM 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 [address] [place] [address] [email or web address] Historical LMR Provider 12/18/18 Additional Source Comments The information contained in this document represents components of the legal health record. It is not the complete legal health record.[facility]
--- OUTSIDE RECORDS SUMMARY | 2025-07-12 17:01 | XMS_ITS | Encounter Summary ---
Author Organization [facility] Address [address] [place] [address] Phone Care Team Providers Care Hydropress Operator Name Role Phone Cordell Cline MD Unavailable [phone] Mathew Gilbert MD, PhD Unavailable [phone] Unknown, Unknown Primary Care Provider Eldon dickerson Encounter Details Date Type Department Care Team ([facility] st Contact Info) Description 05/24/2025 Telephone [facility] [address] [facility] [address] [place] [address] Xavier Galvez MD [address] [place] [address] [email or web address] Social History Tobacco Use Types Packs/Day Years [...] as of this encounter Plan of Treatment Not on file documented as of this encounter Visit Diagnoses Not on filedocumented in this encounter Additional Health Concerns Assessment Noted Time PHQ-2 Depression Total Score: 0 08/22/20 20 4:25 PM EST documented as of this encounter Care Teams Hydropress Operator Relationship Specialty Start Date End Date Unknown, Unknown, MD PCP - General 11/08/21 Cordell Cline MD [address] [place] [address] [place] [address] Historical LMR Provider 12/18/18 Mathew Gilbert MD, PhD [address] [place] [address]. [address] [place] [address] [email or web address] Historical LMR Provider 12/18/18 documented as of this encounter Additional Source Comments The information contained in this document represents components of the legal health record. It is not the complete legal health record.[facility]
--- OUTSIDE RECORDS SUMMARY | 2025-07-12 17:01 | XMS_ITS | Clinical Summary ---
Author Organization [facility], Address [address] [place] [address] [place] [address] Phone Care Team Providers Care Solid Waste Engineer Name Role Phone Nan Diaz PA-C Primary Care Provider [phone] Allergies Active Allergy Reactions Criticality Noted Date Comments Amoxicillin Other (see comments) High 08/11/2007 Dust Mite Extract Other (see comments) 03/31/20 09 Metronidazole 06/16/2019 Molds & Smuts Other (see comments) 03/31/2009 Peanut Butter Flavoring Agent (Non-Screening) High 06/25/2016 Penicillins Other (see comments) High 08/11/2007 Other reaction(s): hives Leni Heflin Other (see comments) 03/31/20 09 Medications clonazePAM (KlonoPIN) 1 MG tablet Take 1 [...] DAILY,X90 DAYS,INSTR:AFTER SUPPER DISCONTINUE ATORVASTATIN 2 Active candesartan (Atacand) 4 MG tabletIndicati ons:Hypertensi ve disorder,Stage 3a chronic kidney disease (HCC) Take 1 tablet (4 mg total) by mouth 1 (one) time each day 90 tablet 3 5 04/02/20 26 Active Active Problems Problem Noted Date Diagnosed Date Stage 3a chronic kidney disease 10/05/2022 Hyperlipidemia 03/04/2019 Hypertensive disorder 03/04/2019 Encounters Date Type Department Care Team Description 06/14/2025 Documentation Only [facility] [address] [place] [phone] Trina Gil MA from Last 3 Months Immunizations Immunization Administration Dates Next Due Influenza, [...] Sign Reading Time Taken Comments Blood Pressure 124/72 04/02/2025 3:09 PM EDT Pulse 70 04/02/2025 3:09 PM EDT Temperature - - Respiratory Rate - - Oxygen Saturation - - Inhaled Oxygen Concentration - - Weight - - Height - - Body Mass Index - - Plan of Treatment Upcoming Encounters Date Type Department Care Team (Late st Contact Info) Description 03/30/2026 2:00 PM EDT Office Visit [facility] [address] [place] [phone] Ollie Chin DO [address] [place] [address] [place] [phone] Health Maintenance Due Date Last Done Comments Breast Cancer Screening 1955 Pneumococcal Vaccine: 50+ Ye ars (1 of 2 - PCV) 1973 Colorectal Cancer Screening: Annual FOBT 2003 Colorectal Cancer Screening: Colonoscopy 2003 Colorectal Cancer Screening: Sigmoidoscopy 2003 Influenza Vaccine (#1) 2025 07/10/2013 Hepatitis B Vaccine Aged Out No longe r eligible based on patient's age to complete this topic Insurance [address] [place] [address] [facility] [address] [place] [id number] [facility] [address] [place] [address] Care Teams Solid Waste Engineer Relationship Specialty Start Date End Date Nan Diaz PA-C [address] [place] [address] PCP - General Internal Medicine 07/24/22
--- OUTSIDE RECORDS SUMMARY | 2025-07-12 17:01 | XMS_ITS | Clinical Summary ---
Author Organization [facility] Address [address] [place] [address] Care Team Providers Care Gradall Operator Name Role Phone Isaac Hawkins MD Primary Care Provider [phone] Allergies Active Allergy Reactions Criticality Noted Date Comments Amoxicillin 02/29/2016 Ampicillin 02/29/2016 Environmental 02/29/2016 Penicillins 02/29/2016 Medications DULoxetine HCl [address] Particles 1 CAPSULE DAILY Active Diazepam 5 MG Tab 1 TABLET TWICE DAILY Active Amitriptyline HCl 25 MG Tab 1 TABLET AT NIGHTTIME Active AmLODIPine Besylate 2.5 MG Tab 1 TABLET DAILY Activ e Atorvastatin Calcium 10 MG Tab 1 TABLET DAILY Activ e Aspirin 325 MG Tab 2 TABLETS EVERY 4 TO 6 HOURS NEEDED Active Ranitidine HCl 150 MG Cap 1 CAPSULE TWICE DAILY PRN Active traMADol HCl 50 MG Tab 1 TABLET EVERY 4 TO 6 HOURS NEEDED Active Rabeprazole Sodium 20 MG Tablet Delayed Response 1 TABLET EVERY MORNING Active Ophthalmic Irrigation Solution (RA STERILE EYE WASH) Solution None Entered Ac tive Saline Nasal [place] 0.65 % Solution None Entered Active Biotin 5000 MCG Tab 1 TABLET DAILY Activ e Active Problems No known active problems Social History Tobacco Use Types Packs/Day Years Used Date Smoking Tobacco: Never Alcohol Use Standard Drinks/Week Comments Not Asked 0 (1 standard drink = 0.6 oz pur e alcohol) Comments No Sex and Gender Information Value Date Recorded Sex Assigned at Not on file Legal Sex Female 9:42 PM EDT Gender Identity Not on file Sexual Orientation Not on file Last Filed Vital Signs Vital Sign Reading Time Taken Comments Blood Pressure 125/78 03/07/2019 3:40 PM EDT Pulse 71 03/07/2019 3:40 PM EDT Temperature 36.4 C (97.5 F) 03/07/2019 3:40 PM EDT Respiratory Rate 16 03/07/2019 3:40 PM EDT Oxygen Saturation 99% 03/07/2019 3:40 PM EDT Inhaled Oxygen Concentration - - Weight 92.1 kg (203 lb) 02/29/2016 3:09 PM EDT Height 157.5 cm (5' 2 ) 02/29/2016 3:09 PM EDT Body Mass Index 37.13 02/29/2016 3:09 PM EDT Plan of Treatment Health Maintenance Due Date Last Done Comments Hepatitis C Screening 1955 DTaP/Tdap/Td (1 - Tdap) 1972 Mammogram/Breast Imaging 1994 Pneumococcal 50+ years (1 of 1 - PCV) 2004 Zoster (Shingrix) (1 of 2) 2004 Bone Density 2019 COVID-19 Vaccine (1 - 2023-2 5 season) 2025 Influenza (#1) 2025 RSV (1 - 1-dose 75+ series) 2029 HPV Vaccine (No Doses Required) Completed Hep A Aged Out No longer eligi ble based on patient's age to complete this topic Hep B Aged Out No longer eligi ble based on patient's age to complete this topic Hib Aged Out No longer eligi ble based on patient's age to complete this topic Meningococcal ACWY Aged Out No longer eligible based on patient's age to complete this topic Pap Smear Discontinued Zoster (Zostavax) Discontinued Insurance MEDICARE PART B MEDICAID Care Teams Gradall Operator Relationship Specialty Start Date End Date Isaac Hawkins MD [facility] [address] [place] [id number] PCP - General Internal Medicine 03/07/19
--- OUTSIDE RECORDS SUMMARY | 2025-07-12 17:01 | XMS_ITS | Encounter Summary ---
Author Organization [facility] Address [address] [place] [address] Phone Care Team Providers Care Referral And Information Aide Name Role Phone Nan Diaz PA-C Primary Care Provider [phone] Encounter Details Date Type Department Care Team (Late st Contact Info) Description 06/14/2025 Documentation Only [facility] [address] [place] [address] Gloria Gil[place], [place] [address] [place] [address] Social History Tobacco Use Types Packs/Day Years [...] Visit [facility] [address] [place] [address] Ollie Chin DO [address] [place] [address] [place] [address] documented as of this encounter Visit Diagnoses Not on filedocumented in this encounter Care Teams Referral And Information Aide Relationship Specialty Start Date End Date Nan Diaz PA-C [address] [place] [address] [phone] PCP - General Internal Medicine 07/24/22 documented as of this encounter
== END 2025-07-12 15:14 | disposition home or self-care (01) ==
LOC: HO.HOS 14:34
PROVIDERS: Visit Provider Physician Assistant
DX: M75.22 Bicipital tendinitis, left shoulder (principal)
CPT/HCPCS: 99213; G2211

== ENCOUNTER → 2025-07-12 14:34 | Outpatient (BNVA) | payer MEDICARE, SELFPAY | PROVIDERS: Visit Provider Physician Assistant | DX: M75.22 Bicipital tendinitis, left shoulder (principal) | CPT/HCPCS: 99212 ==

== ENCOUNTER 2025-07-15 12:56 | Outpatient (REF) | payer MEDICARE, SELFPAY ==
--- OUTSIDE RECORDS SUMMARY | 2025-07-15 13:00 | XMS_ITS | Encounter Summary ---
Author Organization [facility] Address [address] [place] [address] Phone Care Team Providers Care Drum Loader And Unloader Name Role Phone Nan Diaz PA-C Primary Care Provider [phone] Encounter Details Date Type Department Care Team (Late st Contact Info) Description 06/14/2025 Documentation Only [facility] [address] [place] [address] [place], [place] [address] [place] [address] Social History Tobacco Use Types [...] Visit [facility] [address] [place] [address] Ollie Chin DO [address] [place] [address] [place] [address] documented as of this encounter Visit Diagnoses Not on filedocumented in this encounter Care Teams Drum Loader And Unloader Relationship Specialty Start Date End Date Nan Diaz PA-C [address] [place] [address] [phone] PCP - General Internal Medicine 07/24/22 documented as of this encounter
--- OUTSIDE RECORDS SUMMARY | 2025-07-15 13:00 | XMS_ITS | Encounter Summary ---
Author Organization [facility] Address [address] [place] [address] Phone Care Team Providers Care Tipple Greaser Name Role Phone Nan Diaz PA-C Primary Care Provider [phone] Encounter Details Date Type Department Care Team (Late st Contact Info) Description 04/03/2024 Documentation Only [facility] [address] [place] [address] Ollie Chin DO [address] [facility] [place] [address] Social History Tobacco Use Types [...] [facility] [address] [place] [address] Ollie Chin DO [address] [facility] [place] [address] documented as of this encounter Visit Diagnoses Not on filedocumented in this encounter Care Teams Tipple Greaser Relationship Specialty Start Date End Date Nan Diaz PA-C [address] [place], [place] [phone] PCP - General Internal Medicine 07/24/22 documented as of this encounter
--- OUTSIDE RECORDS SUMMARY | 2025-07-15 13:00 | XMS_ITS | Clinical Summary ---
Author Organization [facility] Address [address] [facility] [address] [place] [address] Phone Care Team Providers Care Telephone Service Representative Name Role Phone Cordell Cline MD Unavailable [phone] Mathew Cohen MD, PhD Unavailable [phone] Unknown, Unknown Primary Care Provider Eldon dickerson Allergies Active Allergy Reactions Criticality Noted Date Comments Amoxicillin Unknown High 08/11/2007 Ampicillin Unknown High 08/11/2007 Metronidazole 06/16/2019 House Dust Unknown 03/31/2009 Levothyroxine 03/05/2025 Mold Extracts Unknown 03/31/2009 [place] Unknown 03/31/2009 Peanut Butter Flavor High 06/25/2016 [...] brace image that can be bought on [employer]. Primary osteoarthritis of both knees 05/06/2019 Hypertensive disorder 03/04/2019 Hyperlipidemia 03/04/2019 Depressive disorder 03/04/2019 Encounters Date Type Department Care Team Description 06/07/2025 Refill [facility] Neurology [address] [place] [address] Xavier Galvez MD Medication Refill 05/24/2025 Telephone [facility] Sleep [place] [address] [facility] [address] [place] [address] Xavier Galvez MD 04/27/2025 2:15 PM EDT Telemedicine - audio only [facility] Neurology [address] [place] [address] Xavier Galvez MD Chronic migraine without aura with status migrainosus, not intractable (Primary Dx) 04/16/2025 Telephone [facility] Neurology [address] [place] [address] Xavier Galvez MD 04/15/2025 Telephone [facility] Neurology [address] [place] [address] Xavier Galvez MD from Last 3 Months [...] 9:17 AM EST) Cholesterol 220(H) <200 mg/dL [facility] Triglycerides 105 <150 mg/dL [facility] HDL Cholesterol 55 >50 mg/dL [facility] LDL Cholesterol Calculated 144(H) <100 mg/dL [facility] Chol HDL Ratio 4.0 <5.0 [facility] 09/02/2020 9:17 AM EST Isaac Hawkins MD LAB BLOOD ORDERABLES Final Resu lt Performing Organization Address City/State/[facility] Co de Phone Number [address] [address], [facility] [phone] * Mammogram Screening With Tomosynthesis With CAD (Bilateral) (08/05/2020 3:43 PM EDT) Anatomical Region Laterality Modality Breast Left, Breast Right, Breast Bilateral Bila teral Mammography 08/05/2020 3:43 PM EDT Narrative 08/05/2020 3:49 PM EDT [address] [address] Mammography Report Signed Patient: Loan Martinez MR#: [id number] : 1955 Acct:[id number] Age/Sex: 64 / F ADM Date: 08/05/20 Loc: [facility] Attending Dr: Isaac Hawkins MD Ordering Physician: Isaac Hawkins Results: 0Incomple te: Need additional imaging evaluation Date of Service: 08/05/20 Follow Up: Immediate Follo w-Up Recommended Procedure(s): MM screening combo BI Accession Number(s): [id number] cc: Isaac Hawkins EXAMINATION: BILATERAL SCREENING MAMMOGRAPHY [...] Procedure Note Maxwell Madden MD - 08/05/2020 [facility] [address] [place] [address] Mammography Report Signed Patient: Loan Martinez MR#: [id number] : 5Acct:[id number] Age/Sex: 64 / F ADMDate: 08/05/20 Loc: [facility] Attending Dr: Isaac Hawkins MD Ordering Physician: Isaac HawkinsResults: 0Incomple te: Need additional imaging evaluation Date of Service: 08/05/20Follow Up: Immediate Follo w-Up Recommended Procedure(s): MM screening combo BI Accession Number(s): [id number] cc: Isaac Hawkins EXAMINATION: BILATERAL SCREENING MAMMOGRAPHY [...] Narrative 06/23/2013 1:23 PM EDT Exam Number: [id number] Report Status: Signed Type: BONE DENSITY Date/Time: 06/23/2013 13:23 Ordering Provider: DAVE COHEN REPORT: [address] [address] DXA BONE DENSITY STUDY HISTORY: Estrogen deficiency TECHNIQUE: Bone density measurements of the lumbar spine, hip, and forearm were obtained using a HOLOGIC QDR #[id number]. FINDINGS: L1-L4 BMD= 1.255 g/cm2, which is [...] Provider Not In - 05/12/2015 Exam Number: [id number] Report Status: Signed Type: BONE DENSITY Date/Time: 06/23/2013 13:23 Ordering Provider: DAVE COHEN REPORT: [address] [address] DXA BONE DENSITY STUDY HISTORY: Estrogen deficiency TECHNIQUE: Bone density measurements of the lumbar spine, hip, and forearm were obtained using a HOLOGIC QDR #[id number]. 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 Dao. [address] [place] [address] [email or web address] Historical LMR Provider 12/18/18 Additional Source Comments The information contained in this document represents components of the legal health record. It is not the complete legal health record.[facility]
--- OUTSIDE RECORDS SUMMARY | 2025-07-15 13:00 | XMS_ITS | Encounter Summary ---
Author Organization [facility] Address [address] [place] [address] Phone Care Team Providers Care Wood Milling Machine Hand Name Role Phone Cordell Cline MD Unavailable [phone] Mathew Gilbert MD, PhD Unavailable [phone] Unknown, Unknown Primary Care Provider Eldon dickerson Encounter Details Date Type Department Care Team ([facility] st Contact Info) Description 05/24/2025 Telephone [facility] [address] [facility] [address] [place] [address] Xavier Galvez MD [address] [place] [address] [email or web address] Social History Tobacco Use Types Packs/Day Years [...] documented as of this encounter Care Teams Wood Milling Machine Hand Relationship Specialty Start Date End Date Unknown, Unknown, MD PCP - General 11/08/21 Cordell Cline MD [address] [place] [address] [place] [address] Historical LMR Provider 12/18/18 Mathew Gilbert MD, PhD [address] [place] [address]. Dao. [address] [place] [address] [email or web address] Historical LMR Provider 12/18/18 documented as of this encounter Additional Source Comments The information contained in this document represents components of the legal health record. It is not the complete legal health record.[facility]
--- OUTSIDE RECORDS SUMMARY | 2025-07-15 13:00 | XMS_ITS | Clinical Summary ---
Author Organization [facility] Address [address] [place] [address] Care Team Providers Care Office Equipment Mechanic Name Role Phone Isaac Hawkins MD Primary Care Provider [phone] Allergies Active Allergy Reactions Criticality Noted Date [...] Solution None Entered Ac tive Saline Nasal [place] 0.65 % Solution None Entered Active Biotin [...] Bone Density 2019 COVID-19 Vaccine (1 - 2024-2 6 season) 2025 Influenza (#1) 2025 RSV (1 [...] Insurance MEDICARE PART B MEDICAID Care Teams Office Equipment Mechanic Relationship Specialty Start Date End Date Isaac Hawkins MD [facility] [address] [place] [phone] PCP - General Internal Medicine 03/07/19
--- OUTSIDE RECORDS SUMMARY | 2025-07-15 13:00 | XMS_ITS | Clinical Summary ---
Author Organization [facility] Address [address] [place] [address] [place] [address] Phone Care Team Providers Care Application Penetration Tester Name Role Phone Nan Diaz PA-C Primary Care Provider [phone] Allergies Active Allergy Reactions Criticality Noted Date Comments Amoxicillin Other (see comments) High 08/11/2007 Dust Mite Extract Other (see comments) 03/31/20 09 Metronidazole 06/16/2019 Molds & Smuts Other (see comments) 03/31/2009 Peanut Butter Flavoring Agent (Non-Screening) High 06/25/2016 Penicillins Other (see comments) High 08/11/2007 Other reaction(s): hives Leni Harriman Other (see comments) 03/31/20 09 Medications clonazePAM [...] Only [facility] [address] [facility] [address] [place] [phone] Trina Gil MA from Last 3 Months [...] Visit [facility] [address] [place] [address] Ollie Chin DO [address] [place] [address] [place] [phone] Health Maintenance Due Date Last Done Comments Breast Cancer Screening 1954 Pneumococcal Vaccine: 50+ Ye ars (1 of 2 - PCV) 1973 Colorectal Cancer Screening: Annual FOBT 2003 Colorectal Cancer Screening: Colonoscopy 2003 Colorectal Cancer Screening: Sigmoidoscopy 2003 Influenza Vaccine (#1) 2025 07/10/2013 Hepatitis B Vaccine Aged Out No longe r eligible based on patient's age to complete this topic Insurance [address] [place] [address] [facility] [address] [place] [address] [facility] [address] [place] [address] Care Teams Application Penetration Tester Relationship Specialty Start Date End Date Nan Diaz PA-C [address] [place] [address] PCP - General Internal Medicine 07/24/22
--- OUTSIDE RECORDS SUMMARY | 2025-07-15 13:00 | XMS_ITS | Encounter Summary ---
Author Organization [facility] Address [address] [place] [address] Phone Care Team Providers Care Receiving Worker Name Role Phone Cordell Cline MD Unavailable [phone] Mathew Gilbert MD, PhD Unavailable [phone] Unknown, Unknown Primary Care Provider Eldon dickerson Encounter Details Date Type Department Care Team (Late st Contact Info) Description 04/16/2025 Telephone [facility] Neurology [address] [place] [address] Xavier Galvez MD [address] [place] [address] [email or web address] Social History Tobacco Use Types Packs/Day Years [...] documented as of this encounter Care Teams Receiving Worker Relationship Specialty Start Date End Date Unknown, Unknown, MD PCP - General 11/08/21 Cordell Cline MD [address] [place] [address] [place] [address] Historical LMR Provider 12/18/18 Mathew Gilbert MD, PhD [address] [place] [address]. [address] [place] [address] [email or web address] Historical LMR Provider 12/18/18 documented as of this encounter Additional Source Comments The information contained in this document represents components of the legal health record. It is not the complete legal health record.[facility]
--- NOTE | 2025-07-15 13:01 | EMG_ITS ---
Chief complaint: Started as pain on left antecubital area from an IV 2 years ago. Complains of pain going down the hand with tingling on 5th digit. Reason for referral: Evaluate for ulnar neuropathy Referred by: Narendra PAYAN Procedure done: Left upper extremity NCS/EMG Precautions and/or limitations: None The limb temperature was monitored continuously and remained between 32-36 degrees C during the performance of the NCS. Nerve Conduction Studies Anti Sensory Summary Table ?Stim Site NR Onset (ms) Norm Onset (ms) Peak (ms) Norm Peak (ms) O-P Amp (?V) Norm O-P Amp Site1 Site2 Delta-0 (ms) Dist (cm) Sean (m/s) Norm Sean (m/s) Left Median Anti Sensory (2nd Digit) Wrist ? 3.6 4.5 <3.6 22.7 >10 Wrist 2nd Digit 3.6 14.0 39 Left Radial Anti Sensory (Thumb) Forearm ? 1.6 2.2 <3.1 25.4 Forearm Thumb 1.6 0.0 Left Ulnar Anti Sensory (5th Digit) Wrist ? 2.7 3.7 <3.7 33.4 >15.0 Wrist 5th Digit 2.7 14.0 52 Motor Summary Table ?Stim Site NR Onset (ms) Norm Onset (ms) O-P Amp (mV) Norm O-P Amp iAmp (mV) Amp (1st) (%) Site1 Site2 Delta-0 (ms) Dist (cm) Sean (m/s) Norm Sean (m/s) Left Median Motor (Abd Poll Brev) Wrist ? 4.5 <3.9 7.3 >4.5 8.8 100.0 Elbow Wrist 3.5 18.0 51 >45 Elbow ? 8.0 6.3 7.7 86.3 Left Ulnar Motor (Abd Dig Minimi) Wrist ? 3.0 <3.0 9.8 >5 11.0 100.0 B Elbow Wrist 2.9 17.5 60 >45 B Elbow ? 5.9 9.3 11.2 94.9 A Elbow B Elbow 1.6 10.0 63 >45 A Elbow ? 7.5 9.3 11.2 94.9 EMG ?Side Muscle Nerve Root Ins Act Fibs Psw Amp Dur Poly Recrt Int Pat Comment Left 1stDorInt Ulnar C8-T1 Nml Nml Nml Nml Nml 0 Nml Complete Left FlexCarRad Median C6-7 Nml Nml Nml Nml Nml 0 Nml Complete Left Biceps Musculocut C5-6 Nml Nml Nml Nml Nml 0 Nml Complete Left Triceps Radial C6-7-8 Nml Nml Nml Nml Nml 0 Nml Complete Left Deltoid Axillary C5-6 Nml Nml Nml Nml Nml 0 Nml Complete FINDINGS: Left median motor nerve showed prolonged distal latency, normal amplitude and normal conduction velocity. Left median sensory nerve showed prolonged peak latency. All other nerves tested were within normal. Concentric needle EMG was performed in selected muscles of the lower extremity. Study did not reveal signs of electric abnormalities as shown in the table above. IMPRESSION: 1. This is an abnormal study. 2. There is electrodiagnostic evidence for moderate-severe median neuropathy at the wrist, consistent with carpal tunnel syndrome. 3. There is no electrodiagnostic evidence for ulnar neuropathy, brachial plexopathy, or cervical radiculopathy. Thank you for your kind referral. Adeline Mancilla MD, KINSEY Board Certified, [place] Board of Physical Medicine and Rehabilitation (ABPMR) Board Certified, [place] Board of Electrodiagnostic Medicine (ABEM) CODIN [address] MTDD
== END 2025-07-15 12:57 | disposition home or self-care (01) ==
LOC: HO.NEURO 12:56
DX: R20.0 Anesthesia of skin (principal); R20.2 Paresthesia of skin
CPT/HCPCS: 95886; 95909

== ENCOUNTER → 2025-07-15 13:01 | Outpatient (BNV) | payer MEDICARE, SELFPAY | PROVIDERS: Visit Provider Physical Medicine & Rehabilitation | DX: G62.89 Other specified polyneuropathies (principal) | CPT/HCPCS: 95886; 95909 ==

== ENCOUNTER 2025-07-26 14:41 | Outpatient (REF) | payer MEDICARE, SELFPAY ==
--- OUTSIDE RECORDS SUMMARY | 2025-07-26 18:36 | XMS_ITS | Encounter Summary ---
Author Organization [facility] Address [address] [place] [address] Phone Care Team Providers Care Manager E Commerce Name Role Phone Nan Diaz PA-C Primary Care Provider Encounter Details Date Type Department Care Team (Late st Contact Info) Description 04/03/2024 Documentation Only [facility] [address] [place] [address] Ollie Chin DO [address] [facility] [place] [address] Social History Tobacco Use Types [...] Visit [facility] [address] [place] [address] Ollie Chin DO [address] [facility] [address] [place] [address] documented as of this encounter Visit Diagnoses Not on filedocumented in this encounter Care Teams Manager E Commerce Relationship Specialty Start Date End Date Nan Diaz PA-C [address] [place], [place] [phone] PCP - General Internal Medicine 07/24/22 documented as of this encounter
--- OUTSIDE RECORDS SUMMARY | 2025-07-26 18:36 | XMS_ITS | Clinical Summary ---
Author Organization [facility], Address [address] [place] [address] [place] [address] Phone Care Team Providers Care Cmo & President Name Role Phone Nan Diaz PA-C Primary Care Provider [phone] Allergies Active Allergy Reactions Criticality Noted Date Comments Amoxicillin Other (see comments) High 08/11/2007 Dust Mite Extract Other (see comments) 03/31/20 09 Metronidazole 06/16/2019 Molds & Smuts Other (see comments) 03/31/2009 Peanut Butter Flavoring Agent (Non-Screening) High 06/25/2016 Penicillins Other (see comments) High 08/11/2007 Other reaction(s): hives Leni W[place] Other (see comments) 03/31/20 09 Medications clonazePAM [...] Only [facility] [address] [facility] [place] [phone] Trina Gil MA from Last 3 Months [...] Visit [facility] [address] [place] [phone] Ollie Chin DO [address] [place] [address] [place] [phone] Health Maintenance Due Date Last Done Comments Breast Cancer Screening 1955 Pneumococcal Vaccine: 50+ Ye ars (1 of 2 - PCV) 1973 Colorectal Cancer Screening: Annual FOBT 2003 Colorectal Cancer Screening: Colonoscopy 2003 Colorectal Cancer Screening: Sigmoidoscopy 2003 Influenza Vaccine (#1) 2025 07/10/2013 Hepatitis B Vaccine Aged Out No longe r eligible based on patient's age to complete this topic Insurance [address] [place] [address] [facility] [address] [place] [phone] [facility] [address] [place] [address] Care Teams Cmo & President Relationship Specialty Start Date End Date Nan Diaz PA-C [address] [place] [address] PCP - General Internal Medicine 07/24/22
--- OUTSIDE RECORDS SUMMARY | 2025-07-26 18:36 | XMS_ITS | Clinical Summary ---
Author Organization [facility] Address [address] [place] [address] Care Team Providers Care Manager Printing Name Role Phone Isaac Hawkins MD Primary Care Provider [phone] Allergies Active Allergy Reactions Criticality Noted Date [...] Solution None Entered Ac tive Saline Nasal [place] 0.65 % Solution None Entered Active Biotin [...] Insurance MEDICARE PART B MEDICAID Care Teams Manager Printing Relationship Specialty Start Date End Date Isaac Hawkins MD [facility] [address] [place] [id number] PCP - General Internal Medicine 03/07/19
--- OUTSIDE RECORDS SUMMARY | 2025-07-26 18:36 | XMS_ITS | Encounter Summary ---
Author Organization [facility] Address [address] [place] [address] Phone Care Team Providers Care Children'S Lunchroom Supervisor Name Role Phone Nan Diaz PA-C Primary Care Provider [phone] Encounter Details Date Type Department Care Team (Late st Contact Info) Description 06/14/2025 Documentation Only [facility] [address] [place] [address] Gloria GilChauncey, [place] [address] [place] [address] Social History Tobacco Use Types [...] Visit [facility] [address] [place] [address] Ollie Chin DO [address] [place] [address] [place] [address] documented as of this encounter Visit Diagnoses Not on filedocumented in this encounter Care Teams Children'S Lunchroom Supervisor Relationship Specialty Start Date End Date Nan Diaz PA-C [address] [place] [address] [phone] PCP - General Internal Medicine 07/24/22 documented as of this encounter
== END 2025-07-26 14:42 | disposition home or self-care (01) ==
LOC: HO.HOSX 14:41
DX: Z13.89 Encounter for screening for other disorder (principal)

== ENCOUNTER 2025-07-27 11:08 | Outpatient (REF) | payer MEDICARE, SELFPAY | END 2025-07-27 11:09 | disposition home or self-care (01) | LOC: HO.HOSX 11:08 | DX: G56.02 Carpal tunnel syndrome, left upper limb (principal); R20.2 Paresthesia of skin; R20.0 Anesthesia of skin | CPT/HCPCS: 99212 ==

== ENCOUNTER 2025-07-27 15:17 | Outpatient (AMB) | payer MEDICARE, SELFPAY ==
--- OUTSIDE RECORDS SUMMARY | 2019-06-04 08:00 | XMS_ITS | Continuity of Care Document ---
Author Organization Karlos Castillo [facility] Address [address] [address],[address] [place] [address] Phone Care Team Providers Care Graduate Recruiter Name Role Phone Unavailable Unavailable Unavailable Procedures [...] Provider Providers Copied on Encounter Karlos Castillo [facility], [address] [place] [address],[facility] 200[place], [place], [id number], tel:[phone] 2 [facility] Encounter for dental exam and cleaning w/o abnormal findings 9 No Information Karlos Castillo [facility], [address] [place] [address],[facility] 200, [place], [place], [id number], [place] tel:[phone] 2 [facility] Encounter for dental exam and cleaning w/o abnormal findings 8 No Information Karlos Castillo [facility], [address] [place] [address],[facility] 200, [place], [place], [id number], tel:[phone] 2 [facility] Encounter for dental exam and cleaning w/o abnormal findings 8 No Information Karlos Castillo [facility], [address] [facility],[address], [place], [place], [id number], tel:[phone] 2 [facility] Encounter for dental exam and cleaning w/o abnormal findings 8 No Information Family History Family Member Type Diagnosis Age At Onset No Information Payers Payer name Insurance type Covered democrat ID Authoriza tion(s) No Information Social History [...]
[2025-07-27 15:27] VITALS: BMI 30.5
--- NOTE | 2025-07-27 15:27 | MHC.OFFVIS ---
Vital Signs 07/27/25 15:27 Height 5 ft 3.5 in Weight 175 lb BMI 30.5 Intake Visit Reasons: New prob - left hand pain Intake Note: Loan is a 69 year old right hand dominant female who presents today for a New Problem Visit for evaluation of Left Hand Numbness & Tingling. Patient reports her numbness is primarily present when she does anything that cuts off circulation, specially the left inner elbow . Patient states she had Right Hand Carpal Tunnel Syndrome years ago and these symptoms are not like it. Patient is concerned as her hand turns blue when it is really really cold . She feels her symptoms are a complication from an IV that was placed on the brachial aspect of the left elbow approximately 2 years ago. IMPRESSION 07/15/25: 1. This is an abnormal study. 2. There is electrodiagnostic evidence for moderate-severe median neuropathy at the wrist, consistent with carpal tunnel syndrome. 3. There is no electrodiagnostic evidence for ulnar neuropathy, brachial plexopathy, or cervical radiculopathy. Allergies amoxicillin Allergy (Verified 07/28/25 13:46) Hives ampicillin Allergy (Verified 07/28/25 13:46) Hives levothyroxine Allergy (Verified 07/28/25 13:46) Unknown metronidazole (From Flagyl) Allergy (Verified 07/28/25 13:46) sick Penicillins Allergy (Verified 07/28/25 13:46) Hives sulfamethoxazole Adverse Reaction (Unknown, Verified 07/28/25 13:46) Unknown tetracycline Adverse Reaction (Unknown, Verified 07/28/25 13:46) Unknown HPI HPI New prob - left hand pain: Details: Loan is a 69 year old right hand dominant female who presents today for a New Problem Visit for evaluation of Left Hand Numbness & Tingling. Patient reports her numbness is primarily present when she does anything that cuts off circulation, specially the left inner elbow . Patient states she had Right Hand Carpal Tunnel Syndrome years ago and these symptoms are not like it. Patient is concerned as her hand turns blue when it is really really cold . She feels her symptoms are a complication from an IV that was placed on the brachial aspect of the left elbow approximately 2 years ago. IMPRESSION 07/15/25: 1. This is an abnormal study. 2. There is electrodiagnostic evidence for moderate-severe median neuropathy at the wrist, consistent with carpal tunnel syndrome. 3. There is no electrodiagnostic evidence for ulnar neuropathy, brachial plexopathy, or cervical radiculopathy. [facility] Medical History (Updated 08/05/25 @ 13:41 by SCHUYLER Brush) Migraine Stage 3 chronic kidney disease Hypothyroid Borderline diabetes High blood cholesterol High blood pressure Social History Housing: Apartment e-Cigarette/Vaping Use: Never Used service: No Current occupational status: retired Current occupational exposures/hazards: No Hearing needs: Yes Review of Systems Const All systems reviewed & are unremarkable except as noted in HPI and below Physical Exam Vital Signs: BMI result Body Mass Index 30.5 Extrem Other: Neuro: Diminished sensation of the tips of all digits of the left hand in the office today No thenar or intrinsic wasting. Good APB muscle firing and good finger cross. Vascular: Capillary refill brisk. ROM: Patient can make a fist and extend all their digits. Skin: No lacerations or abrasions noted. General: No ecchymosis. No erythema or evidence of infection. Assessment & Plan Assessment & Plan (1) Left carpal tunnel syndrome: Code(s): G56.02 - Carpal tunnel syndrome, left upper limb Category: Medical (2) Numbness and tingling in left hand: Code(s): R20.0 - Anesthesia of skin; R20.2 - Paresthesia of skin Category: Medical Plan 1. Left carpal tunnel syndrome 2. Ulnar nerve distribution numbness and tingling of the left hand Symptoms constant, daily, worse at night Patient is educated about this condition Patient is educated about the typical treatment course At this time, carpal tunnel releases discussed with the patient, but she states that what is most bothersome to her is the numbness and tingling in the small finger and pain moving up to the elbow Therefore, in the setting of a negative EMG, I feel it is best to refer the patient to Dr. Metcalf for discussion of further treatment and potential cubital tunnel release even in the setting of negative EMG Patient will be booked for next available appointment with Dr. Metcalf to discuss this Patient understands this in his amenable to this plan Follow-up with Dr. Metcalf, sooner with any acute concerns Orders: Orders XR hand LT min 3V 07/27/25 M79.642 - Pain in left hand Coding Level of Care Code Est Pt Level 3 (93047) Diagnoses Left carpal tunnel syndrome G56.02 Numbness and tingling in left hand R20.0; R20.2
--- OUTSIDE RECORDS SUMMARY | 2025-07-27 20:24 | XMS_ITS | Encounter Summary ---
Author Organization [facility] Address [address] [place] [address] Phone Care Team Providers Care Design Studio Consultant Name Role Phone Cordell Cline MD Unavailable [phone] Mathew Gilbert MD, PhD Unavailable [phone] Unknown, Unknown Primary Care Provider Eldon dickerson Encounter Details Date Type Department Care Team ([facility] st Contact Info) Description 05/24/2025 Telephone [facility] [address] [facility] [address] [place] [address] Xavier Galvez MD [address] [place] [address] [email or web address] Social History Tobacco Use Types Packs/Day Years [...] documented as of this encounter Care Teams Design Studio Consultant Relationship Specialty Start Date End Date Unknown, Unknown, MD PCP - General 11/08/21 Cordell Cline MD [address] [place] [address] [place] [address] Historical LMR Provider 12/18/18 Mathew Gilbert MD, PhD [address] [place] [address]. [address] [place] [address] [email or web address] Historical LMR Provider 12/18/18 documented as of this encounter Additional Source Comments The information contained in this document represents components of the legal health record. It is not the complete legal health record.[facility]
--- OUTSIDE RECORDS SUMMARY | 2025-07-27 20:24 | XMS_ITS | Clinical Summary ---
Author Organization [facility] Address [address] [place] [address] Care Team Providers Care Registered Sales Assistant Name Role Phone Isaac Hawkins MD Primary Care Provider [phone] Allergies Active Allergy Reactions Criticality Noted Date [...] Solution None Entered Ac tive Saline Nasal Blaine 0.65 % Solution None Entered Active Biotin [...] Insurance MEDICARE PART B MEDICAID Care Teams Registered Sales Assistant Relationship Specialty Start Date End Date Isaac Hawkins MD [facility] [address] [place] [phone] PCP - General Internal Medicine 03/07/19
--- OUTSIDE RECORDS SUMMARY | 2025-07-27 20:24 | XMS_ITS | Clinical Summary ---
Author Organization [facility] Address [address] [facility] [address] [place] [address] Phone Care Team Providers Care Supervisor Net Making Name Role Phone Cordell Cline MD Unavailable [phone] Mathew Cohen MD, PhD Unavailable [phone] Unknown, Unknown Primary Care Provider Eldon dickerson Allergies Active Allergy Reactions Criticality Noted Date Comments Amoxicillin Unknown High 08/11/2007 Ampicillin Unknown High 08/11/2007 Metronidazole 06/16/2019 House Dust Unknown 03/31/2009 Levothyroxine 03/05/2025 Mold Extracts Unknown 03/31/2009 Merlin Unknown 03/31/2009 Peanut Butter Flavor High 06/25/2016 [...] brace image that can be bought on [employer]. Primary osteoarthritis of both knees 05/06/2019 Hypertensive disorder 03/04/2019 Hyperlipidemia 03/04/2019 Depressive disorder 03/04/2019 Encounters Date Type Department Care Team Description 06/07/2025 Refill [facility] Neurology [address] [place] [address] Xavier Galvez MD Medication Refill 05/24/2025 Telephone [facility] [place] [address] [facility] [address] [place] [address] Xavier Galvez MD 04/27/2025 2:15 PM EDT Telemedicine - audio only [facility] Neurology [address] [place] [address] Xavier Galvez MD Chronic migraine without aura with status migrainosus, not intractable (Primary Dx) from Last 3 Months Immunizations Immunization Administration [...] 9:17 AM EST) Cholesterol 220(H) <200 mg/dL [facility] Triglycerides 105 <150 mg/dL [facility] HDL Cholesterol 55 >50 mg/dL [facility] LDL Cholesterol Calculated 144(H) <100 mg/dL [facility] Chol HDL Ratio 4.0 <5.0 [facility] 09/02/2020 9:17 AM EST us Isaac Hawkins MD LAB BLOOD ORDERABLES Final Resu lt Performing Organization Address City/State/[facility] [place] [address], [facility] [phone] * Mammogram Screening With Tomosynthesis With CAD (Bilateral) (08/05/2020 3:43 PM EDT) Anatomical Region Laterality Modality Breast Left, Breast Right, Breast Bilateral Bila teral Mammography 08/05/2020 3:43 PM EDT Narrative 08/05/2020 3:49 [place] [address] Mammography Report Signed Patient: Loan Martinez MR#: [id number] : 1955 Acct:[id number] Age/Sex: 64 / F ADM Date: 08/05/20 Loc: [facility] Attending Dr: Isaac Hawkins MD Ordering Physician: Isaac Hawkins Results: 0Incomple te: Need additional imaging evaluation Date of Service: 08/05/20 Follow Up: Immediate Follo w-Up Recommended Procedure(s): MM screening combo BI Accession Number(s): [id number] cc: Isaac Hawkins EXAMINATION: BILATERAL SCREENING MAMMOGRAPHY [...] Procedure Note Maxwell Madden MD - 08/05/2020 [facility] [address] [place] [address] Mammography Report Signed Patient: Loan Martinez MR#: [id number] : 5Acct:[id number] Age/Sex: 64 / F ADMDate: 08/05/20 [facility] Attending Dr: Isaac Hawkins MD Ordering Physician: Isaac HawkinsResults: 0Incomple te: Need additional imaging evaluation Date of Service: 08/05/20Follow Up: Immediate Follo w-Up Recommended Procedure(s): MM screening combo BI Accession Number(s): [id number] cc: Isaac Hawkins EXAMINATION: BILATERAL SCREENING MAMMOGRAPHY [...] Narrative 06/23/2013 1:23 PM EDT Exam Number: [id number] Report Status: Signed Type: BONE DENSITY Date/Time: 06/23/2013 13:23 Ordering Provider: DAVE COHEN REPORT: [facility] [address] [place] [address] DXA BONE DENSITY STUDY HISTORY: Estrogen deficiency TECHNIQUE: Bone density measurements of the lumbar spine, hip, and forearm were obtained using a HOLOGIC QDR #[id number]. FINDINGS: L1-L4 BMD= 1.255 g/cm2, which is [...] Note Sys, Conversion Provider Not In - 02/15/2015 Exam Number: [id number] Report Status: Signed Type: BONE DENSITY Date/Time: 06/23/2013 13:23 Ordering Provider: DAVE COHEN REPORT: [address] [address] DXA BONE DENSITY STUDY HISTORY: Estrogen deficiency TECHNIQUE: Bone density measurements of the lumbar spine, hip, and forearm were obtained using a HOLOGIC QDR #28002. FINDINGS: L1-L4 BMD= 1.255 g/cm2, which is [...] Recinos MD Date: 06/23/13 Time: 13:36 Dictated: 06/23/131331 Signed: 06/23/131335 ---- Electronic Signature on File ---- Signed By: Christo Recinos MD us Mathew Cohen MD, PhD IMG BD BONE DENSITY DEXA Fi nal Result from Last 3 Months or Most Recently Relevant to Health Maintenance Insurance [facility] MEDICARE PPO BLUE REPLACEMENT [address] [place] [address] [id number] [place] [address] [id number] [place] [address] [id number] [place] [address] Advance Directives For more information, please contact: [phone] (9AM - 5PM [facility], Saturday-Saturday) Documents on File Type Date Recorded Patient Scaffolder Expl anation Advance Directive - Non Epic LMR 03/30/2009 12:00 AM Care Teams Supervisor Net Making Relationship Specialty Start Date End Date Unknown, Unknown, MD PCP - General 11/08/21 Cordell Cline MD [address] [place] [address] [place] [address] Historical LMR Provider 12/18/18 Mathew Cohen MD, PhD [address] [place] [address]. [address] [place] [address] [email or web address] Historical LMR Provider 12/18/18 Additional Source Comments The information contained in this document represents components of the legal health record. It is not the complete legal health record.[facility]
== END 2025-07-27 16:03 | disposition home or self-care (01) ==
DX: G56.02 Carpal tunnel syndrome, left upper limb (principal); R20.2 Paresthesia of skin; R20.0 Anesthesia of skin
CPT/HCPCS: 99213

== ENCOUNTER 2025-07-28 13:29 | Outpatient (AMB) | payer MEDICARE, SELFPAY ==
--- NOTE | 2025-07-28 13:29 | MHC.OFFVIS ---
Vital Signs 07/28/25 13:45 Height 5 ft 2 in Weight 180 lb BMI 32.9 BP 118/70 Blood Pressure Location Rt brachial Position Sitting Respiration 16 Pulse 71 Pulse Source Pulse Oximeter Pulse Oximetry (%) 99 Oxygen Delivery Method Room Air Intake Visit Reasons: Migraine Income Tax Consultant Required: No Allergies amoxicillin Allergy (Verified 07/28/25 13:46) Hives ampicillin Allergy (Verified 07/28/25 13:46) Hives levothyroxine Allergy (Verified 07/28/25 13:46) Unknown metronidazole (From Flagyl) Allergy (Verified 07/28/25 13:46) sick Penicillins Allergy (Verified 07/28/25 13:46) Hives sulfamethoxazole Adverse Reaction (Unknown, Verified 07/28/25 13:46) Unknown tetracycline Adverse Reaction (Unknown, Verified 07/28/25 13:46) Unknown Medication List - Last Reconciled 07/28/25 by Priscilla Dumont, TREVOR albuterol sulfate 90 mcg/actuation 2 puffs inhalation Q4H PRN candesartan 4 mg PO DAILY clonidine HCl 0.1 mg PO BID PRN duloxetine 20 mg PO BID lamotrigine 200 mg PO DAILY prednisolone acetate 1% 1 drp ophthalmic (eye) TID rizatriptan mg PO rosuvastatin 20 mg PO DAILY HPI Comments Details: Loan is a 69-year-old female patient with a past medical history of hyperlipidemia and mood disorder who is presenting for an evaluation of headache. According to the patient today, she had been seeing a neurologist in [facility]. She had been worked up there for possible seizure and TIA. She also has a history of a meningioma and in the past had been followed for that by a different neurologist. She is currently residing in [facility] and decided to establish neurological care more locally. She tells me today that she has been having low grade chronic migraines which started many years ago. She reports that she has stabbing pain to the left temporal and retroorbital area that radiates into her face and into her left jaw. This pain is near constant but can become severe on that left side. She denies any known triggers for this pain. She has associated swelling of that left eye when she has her head pain. She denies lacrimation or associated congestion or rhinnorhea. She does not have any vision changes with her headaches in particular. She does however have chronic narrow angle glaucoma and cataracts which have played a role in her vision overall. She does note some floaters as well which are chronic. She has associated tinnitus that sounds like static in both ears that gets louder when she has a headache. She does not have nausea, light, or sound sensitivity with her headaches. She also endorses another type of headache described as a pain to the frontal and maxillary areas that is a low grade dull ache. This is a feeling of pressure to these areas. She also notes that with this her eyes feel very heavy. She also notes a burning sensation to her face and around her lips on both sides. She feels that it is warm and red. She denies burning on her tongue or dental pain. She kept having headaches to the right side with pain shooting down her right arm with possible chest heaviness. This led to a diagnosis of TIA . She also notes bilateral tightening of the muscles of both legs that cause a cramp and then that can cause her neck to move back and fourth which she feels was not uncer control. She had an EEG for this but is not aware of the results of this. Headache characteristics: Time of onset:> 20 years ago Location: Left temporal and retro-orbital Radiation: Face and jaw Positional component: No Character: Stabbing Severity: Can reach 10/10 fluctuates Duration: Constant Frequency: Constant Acute aggravating factors: Unknown Acute relieving factors: Unknown Associated symptoms: Left eye swelling in tinnitus to the left ear Aura:No Headache triggers:Stress and anxiety Other related background information: Sleep: She reports severe insomnia with inability to fall asleep until late hours of the mornign and she has frequent nightly awakenings. She had intended to have a sleep study compelted but never had one done. Stressors: Stress, anxiety, and depression. She sees a psychiatrist provider for this Hydration:She feels that it is very difficult to drink water Caffeine intake: None/rare Alcohol intake:None Substance use:None Tobacco use:None Last eye exam: Within the last few months. She does have narrow angle glaucoma L>R with surgeries x2 as well as cataracts. Last dental visit: A few days ago. She reports remotr history of grinding but not recenly that she is aware of. Past medication trials: Candasartan- Taking for BP but not benefiting her headaches Duloxetine- Taking for moods but not benefiting her headaches Lamotrigine- Taking for moods but not benefiting her headaches Prior workup: Pending records from prior neurologist [facility] Medical History (Updated 08/01/25 @ 10:28 by Priscilla Dumont CNP) Migraine Stage 3 chronic kidney disease Hypothyroid Borderline diabetes High blood cholesterol High blood pressure Social History Housing: Apartment e-Cigarette/Vaping Use: Never Used service: No Current occupational status: retired Current occupational exposures/hazards: No Hearing needs: Yes Review of Systems Const All systems reviewed & are unremarkable except as noted in HPI and below Physical Exam Vital Signs: Last Vital Signs Pulse 71 07/28/25 13:45 Resp 16 07/28/25 13:45 BP 118/70 07/28/25 13:45 Pulse Ox 99 07/28/25 13:45 Oxygen Delivery Method Room Air 07/28/25 13:45 BMI result Body Mass Index 32.9 Const General: cooperative, healthy appearing, comfortable and no acute distress Nutritional Appearance: well nourished Orientation/consciousness: patient oriented x3 Limitations: no limitations HEENT Head: Yes normal to inspection and Yes normocephalic Eyes General: appearance normal, both eyes and all related structures Visual Bardales: normal visual bardales by confrontation Alignment and Position: alignment normal Periorbital: periorbital findings normal Eyelids: Yes eyelids normal Conjunctivae: conjunctivae normal Sclerae: sclerae normal Back/Spine/Pelvis Other: Bilateral trapezius trigger points and left sided occipital notch tenderness Neuro General: patient oriented x3, tone normal and deep tendon reflexes 2+ bilaterally Cranial nerves: Yes CN's II-XII intact bilaterally and Yes Facial sensation intact/muscles of mastication intact Cognition (Neuro): normal cognition Gait exam (Neuro): Normal gait present Motor exam (neuro): 5/5 motor strength present throughout and no tremor noted Sensory Exam: double simultaneous stimulation for sensation normal Romberg Test: Negative Pupils: Normal pupillary reactivity/response: bilateral Psych Appearance: grossly normal Mental Status: mental status grossly normal Speech and movement: Normal speech and movement present and Clear speech present Affect: normal affect Attitude: cooperative Thought process: Normal thought process present Thought content: Normal thought content present Insight: Good insight present (Psych) Judgement: Good judgement present (Psych) Assessment & Plan Assessment & Plan (1) Left-sided headache: Code(s): R51.9 - Headache, unspecified Category: Medical (2) Occipital neuralgia of left side: Code(s): M54.81 - Occipital neuralgia Category: Medical (3) Trigger point of shoulder region: Code(s): M25.519 - Pain in unspecified shoulder Category: Medical Plan Loan is a 69-year-old female patient with a past medical history of hyperlipidemia and mood disorder who is presenting for an evaluation of headache. Headaches seem most consistent with tension type based on the lack of migrainous features. She does interestingly have some swelling to the left eye raising some concern for TAC. She does however have occipital notch tenderness on the left side more so again supporting possibility for tension-type headache. She may benefit from trigger point and occipital nerve block injections. We did discuss options for oral agents however due to concurrent use of other medications and her desire to refrain from oral agents, trigger point and occipital nerve block injections may offer an alternative and more comfortable approach for her. In regards to the reports of episodic muscle stiffness, this does not sound classic of seizure activity however we should reasonably obtain records from her prior Neurology team. We could consider an EEG pending the records. -Consider imaging or repeat EEG pending records form prior neurologist -Trigger point and occipital nerve block injections Coding Level of Care Code New Pt Level 4 (82461) Diagnoses Left-sided headache R51.9 Occipital neuralgia of left side M54.81 Trigger point of shoulder region M25.519
[2025-07-28 13:45] VITALS: BP 118/70; PULSE 71; RESP 16; O2SAT 99; BMI 32.9
--- OUTSIDE RECORDS SUMMARY | 2025-07-28 19:07 | XMS_ITS | Encounter Summary ---
Author Organization [facility] Address [address] [place] [address] Phone Care Team Providers Care Precision Dancer Name Role Phone Cordell Cline MD Unavailable [phone] Mathew Gilbert MD, PhD Unavailable [phone] Unknown, Unknown Primary Care Provider Eldon dickerson Encounter Details Date Type Department Care Team ([facility] st Contact Info) Description 05/24/2025 Telephone [facility] [address] [facility] [address] [place] [address] Xavier Galvez MD [address] [place] [address] [email or web address] Social History Tobacco Use Types [...] documented as of this encounter Care Teams Precision Dancer Relationship Specialty Start Date End Date Unknown, Unknown, MD PCP - General 11/08/21 Cordell Cline MD [address] [place] [address] [place] [address] Historical LMR Provider 12/18/18 Mathew Gilbert MD, PhD [address] [place] [address]. [address]. [address] [place] [address] [email or web address] Historical LMR Provider 12/18/18 documented as of this encounter Additional Source Comments The information contained in this document represents components of the legal health record. It is not the complete legal health record.[facility]
--- OUTSIDE RECORDS SUMMARY | 2025-07-28 19:07 | XMS_ITS | Clinical Summary ---
Author Organization [facility] Address [address] [facility] [address] [place] [address] Phone Care Team Providers Care Field Irrigation Worker Name Role Phone Cordell Cline MD Unavailable [phone] Mathew Cohen MD, PhD Unavailable [phone] Unknown, Unknown Primary Care Provider Eldon dickerson Allergies Active Allergy Reactions Criticality Noted Date Comments Amoxicillin Unknown High 08/11/2007 Ampicillin Unknown High 08/11/2007 Metronidazole 06/16/2019 House Dust Unknown 03/31/2009 Levothyroxine 03/05/2025 Mold Extracts Unknown 03/31/2009 Chadron Unknown 03/31/2009 Peanut Butter Flavor High 06/25/2016 [...] brace image that can be bought on [employer]. Primary osteoarthritis of both knees 05/06/2019 Hypertensive disorder 03/04/2019 Hyperlipidemia 03/04/2019 Depressive disorder 03/04/2019 Encounters Date Type Department Care Team Description 06/07/2025 Refill [facility] Neurology [address] [place] [address] Xavier Galvez MD Medication Refill 05/24/2025 Telephone [facility] Sleep [place] [address] [facility] [address] [place] [address] Xavier Galvez MD 04/27/2025 2:15 PM EDT Telemedicine - audio only [facility] Neurology [address] [place] [address] Xavier Galvez MD Chronic migraine without aura [...] 9:17 AM EST) Cholesterol 220(H) <200 mg/dL [facility] Triglycerides 105 <150 mg/dL [facility] HDL Cholesterol 55 >50 mg/dL [facility] LDL Cholesterol Calculated 144(H) <100 mg/dL [facility] Chol HDL Ratio 4.0 <5.0 [facility] 09/02/2020 9:17 AM EST us Isaac Hawkins MD LAB BLOOD ORDERABLES Final Resu lt Performing Organization Address City/State/[facility] [place] [address], [facility] [phone] * Mammogram Screening With Tomosynthesis With CAD (Bilateral) (08/05/2020 3:43 PM EDT) Anatomical Region Laterality Modality Breast Left, Breast Right, Breast Bilateral Bila teral Mammography 08/05/2020 3:43 PM EDT Narrative 08/05/2020 3:49 [place] [address] Mammography Report Signed Patient: Loan Martinez MR#: [id number] : 1955 Acct:[id number] Age/Sex: 64 / F ADM Date: 08/05/20 Loc: [facility] Attending Dr: Isaac Hawkins MD Ordering Physician: Isaac Hawkins Results: 0Incomple te: Need additional imaging evaluation Date of Service: 08/05/20 Follow Up: Immediate Follo w-Up Recommended Procedure(s): MM screening combo BI Accession Number(s): [id number] cc: Isaac Hawkins EXAMINATION: BILATERAL SCREENING MAMMOGRAPHY [...] Procedure Note Maxwell Madden MD - 08/05/2020 [facility] [address] [place] [address] Mammography Report Signed Patient: Loan Martinez MR#: [id number] : 5Acct:[id number] Age/Sex: 64 / F ADMDate: 08/05/20 [facility] Attending Dr: Isaac Hawkins MD Ordering Physician: Isaac HawkinsResults: 0Incomple te: Need additional imaging evaluation Date of Service: 08/05/20Follow Up: Immediate Follo w-Up Recommended Procedure(s): MM screening combo BI Accession Number(s): [id number] cc: Isaac Hawkins EXAMINATION: BILATERAL SCREENING MAMMOGRAPHY [...] Narrative 06/23/2013 1:23 PM EDT Exam Number: [id number] Report Status: Signed Type: BONE DENSITY Date/Time: 06/23/2013 13:23 Ordering Provider: DAVE COHEN REPORT: [facility] [address] [place] [address] DXA BONE DENSITY STUDY HISTORY: Estrogen deficiency TECHNIQUE: Bone density measurements of the lumbar spine, hip, and forearm were obtained using a HOLOGIC QDR #[id number]. FINDINGS: L1-L4 BMD= 1.255 g/cm2, which is [...] Provider Not In - 02/15/2015 Exam Number: [id number] Report Status: Signed Type: BONE DENSITY Date/Time: 06/23/2013 13:23 Ordering Provider: DAVE COHEN REPORT: [address] [address] DXA BONE DENSITY STUDY HISTORY: Estrogen deficiency TECHNIQUE: Bone density measurements of the lumbar spine, hip, and forearm were obtained using a HOLOGIC QDR #[id number]. FINDINGS: L1-L4 BMD= 1.255 g/cm2, which is [...] Most Recently Relevant to Health Maintenance Insurance [facility] MEDICARE PPO BLUE REPLACEMENT [address] [place] [id number] [place] [address] [id number] [place] [address] [id number] [place] [phone] Advance Directives For more information, please contact: [phone] (9AM - 5PM [facility], Saturday-Saturday) Documents on File Type Date Recorded Patient Test Technician Expl anation Advance Directive - Non Epic LMR 03/30/2009 12:00 AM Care Teams Field Irrigation Worker Relationship Specialty Start Date End Date Unknown, Unknown, MD PCP - General 11/08/21 Cordell Cline MD [address] [place] [address] [place] [address] Historical LMR Provider 12/18/18 Mathew Cohen MD, PhD [address] [place] [address]. [address] [place] [address] [email or web address] Historical LMR Provider 12/18/18 Additional Source Comments The information contained in this document represents components of the legal health record. It is not the complete legal health record.[facility]
--- OUTSIDE RECORDS SUMMARY | 2025-07-28 19:08 | XMS_ITS | Encounter Summary ---
Author Organization [facility] Address [address] [place] [address] Phone Care Team Providers Care Fish Hatchery Worker Name Role Phone Nan Diaz PA-C Primary Care Provider Encounter Details Date Type Department Care Team (Late st Contact Info) Description 04/03/2024 Documentation Only [facility] [address] [place] [address] Ollie Chin DO [address] [facility] [place] [address] Social History Tobacco Use Types [...] [facility] [address] [place] [address] Ollie Chin DO [address] [facility] [place] [address] documented as of this encounter Visit Diagnoses Not on filedocumented in this encounter Care Teams Fish Hatchery Worker Relationship Specialty Start Date End Date Nan Diaz PA-C [address] [place], [place] [id number] PCP - General Internal Medicine 07/24/22 documented as of this encounter
--- OUTSIDE RECORDS SUMMARY | 2025-07-28 19:08 | XMS_ITS | Clinical Summary ---
Author Organization [facility] Address [address] [place] [address] Care Team Providers Care Wort Extractor Name Role Phone Isaac Hawkins MD Primary Care Provider [phone] Allergies Active Allergy Reactions Criticality Noted Date [...] Solution None Entered Ac tive Saline Nasal [place] 0.65 % Solution None Entered Active Biotin [...] Insurance MEDICARE PART B MEDICAID Care Teams Wort Extractor Relationship Specialty Start Date End Date Isaac Hawkins MD [facility] [address] [place] [id number] PCP - General Internal Medicine 03/07/19
--- OUTSIDE RECORDS SUMMARY | 2025-07-28 19:08 | XMS_ITS | Clinical Summary ---
Author Organization [facility] [place] Address [address] [place] [address] [place] [address] Phone Care Team Providers Care Md Do Resident Ur[facility] Name Role Phone Nan Diaz PA-C Primary Care Provider [phone] Allergies Active Allergy Reactions Criticality Noted Date Comments Amoxicillin Other (see comments) High 08/11/2007 Dust Mite Extract Other (see comments) 03/31/20 09 Metronidazole 06/16/2019 Molds & Smuts Other (see comments) 03/31/2009 Peanut Butter Flavoring Agent (Non-Screening) High 06/25/2016 Penicillins Other (see comments) High 08/11/2007 Other reaction(s): hives Leni Shelby Other (see comments) 03/31/20 09 Medications clonazePAM [...] Only [facility] [address] [facility] [place] [id number] Trina Gil MA from Last 3 Months [...] Visit [facility] [address] [place] [phone] Ollie Chin DO [address] [place] [address] [place] [phone] Health Maintenance Due Date Last Done Comments Breast Cancer Screening 1955 Pneumococcal Vaccine: 50+ Ye ars (1 of 2 - PCV) 1973 Colorectal Cancer Screening: Annual FOBT 2003 Colorectal Cancer Screening: Colonoscopy 2003 Colorectal Cancer Screening: Sigmoidoscopy 2003 Influenza Vaccine (#1) 2025 07/10/2013 Hepatitis B Vaccine Aged Out No longe r eligible based on patient's age to complete this topic Insurance [address] [place] [address] [facility] [address] [place] [address] [facility] [address] [place] [address] Care Teams Md Do Resident Urgent Care Relationship Specialty Start Date End Date Nan Diaz PA-C [address] [place] [id number] PCP - General Internal Medicine 07/24/22
--- OUTSIDE RECORDS SUMMARY | 2025-07-28 19:08 | XMS_ITS | Encounter Summary ---
Author Organization [facility] Address [address] [place] [address] Phone Care Team Providers Care Utility Tractor Operator Name Role Phone Nan Diaz PA-C Primary Care Provider Encounter Details Date Type Department Care Team (Late st Contact Info) Description 06/14/2025 Documentation Only [facility] [address] [place] [address] [place], [place] [address] [place] [address] Social History Tobacco Use Types [...] Visit [facility] [address] [place] [address] Ollie Chin DO [address] [place] [address] [place] [address] documented as of this encounter Visit Diagnoses Not on filedocumented in this encounter Care Teams Utility Tractor Operator Relationship Specialty Start Date End Date Nan Diaz PA-C [address] [place] [id number] PCP - General Internal Medicine 07/24/22 documented as of this encounter
== END 2025-07-28 14:36 | disposition home or self-care (01) ==
LOC: HO.HSM 13:29
PROVIDERS: Visit Provider Nurse Practitioner
DX: R51.9 Headache, unspecified (principal); M54.81 Occipital neuralgia; M25.519 Pain in unspecified shoulder
CPT/HCPCS: 99204

== ENCOUNTER → 2025-07-28 13:29 | Outpatient (BNVA) | payer MEDICARE, SELFPAY | PROVIDERS: Visit Provider Nurse Practitioner | DX: G43.709 Chronic migraine without aura, not intractable, without status migrainosus (principal); M54.81 Occipital neuralgia; H40.2220 Chronic angle-closure glaucoma, left eye, stage unspecified; H93.13 Tinnitus, bilateral; M25.512 Pain in left shoulder; M25.511 Pain in right shoulder | CPT/HCPCS: 99202 ==

== ENCOUNTER 2025-08-17 15:11 | Outpatient (AMB) | payer MEDICARE, SELFPAY ==
--- OUTSIDE RECORDS SUMMARY | 2019-06-04 07:00 | XMS_ITS | Continuity of Care Document ---
Author Organization Karlos Castillo [facility] Address [address] [address],[address] [place] [address] Phone Care Team Providers Care Fire Battalion Chief Name Role Phone Unavailable Unavailable Unavailable Procedures Procedure Date Case Presentation, Detailed And Extensiv e Treatmen Prophylaxis-Adult Bitewings-Four Films Periodic Oral Evaluation-Established Pat ient Comprehensive Periodontal Evaluation-New Or Establ Oral Hygiene Instructions Amalgam-One Surface, Primary Or Permanen t Prophylaxis-Adult Oral Hygiene Instructions Intraoral-Complete Series (Including Bit ewings) Comprehensive Oral Evaluation-New Or Est ablished P Case Presentation, Detailed And Extensiv e Treatmen Advance Directives Directive Yes / No Effective Date File Name No Information Encounters Encounter Description Practice Location Reason(s) For Visit Diagnoses Date Provider Providers Copied on Encounter Karlos Castillo [facility], [address] [place] [address],[facility] [address], [place], [id number], tel:[phone] 2 [facility] Encounter for dental exam and cleaning w/o abnormal findings 9 No Information Karlos Castillo [facility], [address] [place] [address],[facility] 200, [place], [place], [id number], [place] tel:[phone] 2 [facility] Encounter for dental exam and cleaning w/o abnormal findings 8 No Information Karlos Castillo [facility], [address] [place] [address],[facility] 200, [place], [place], [id number], tel:[phone] 2 [facility] Encounter for dental exam and cleaning w/o abnormal findings 8 No Information Karlos Castillo [facility], [address] [facility],[address], [place], [place], [id number], tel:[phone] 2 [facility] Encounter for dental exam and cleaning w/o abnormal findings 8 No Information Family History Family Member Type Diagnosis Age At Onset No Information Payers Payer name Insurance type Covered republican ID Authoriza tion(s) No Information Social History Type Description Quantity Date Captured Comments Sex Female Smoking Status No Information Chief Complaint And Reason For Visit No Information Reason For Referral Reason For Referral No Information History Of Present Illness Encounter Date Complaint History Of Prese nt Illness No Information Functional Status Date Functional Assessmen t No Information Instructions Date Instruction Additional Infor mation No Information Assessments Type Assessment Date No Information Patient Care Teams Name Effective Dates (start - stop) Status Members No Information
--- NOTE | 2025-08-17 15:49 | MHC.OFFVIS ---
Vital Signs 08/17/25 15:52 Height 5 ft 2 in Weight 180 lb BMI 32.9 Intake Visit Reasons: OV left hand pain Intake Note: Loan is a 69 year old right hand dominant female who presents today for a follow up visit for evaluation of Left Hand Numbness & Tingling. Patient last seen with Rakesh Mackey. At the time patient reported her numbness is primarily present when she does anything that cuts off circulation, specially the left inner elbow . Patient reported a right hand Carpal tunnel syndrome years ago and these symptoms are not like it. She is having numbness mainly on her small finger. Patient is here to discuss her treatment options. Allergies amoxicillin Allergy (Verified 08/17/25 15:51) Hives ampicillin Allergy (Verified 08/17/25 15:51) Hives levothyroxine Allergy (Verified 08/17/25 15:51) Unknown metronidazole (From Flagyl) Allergy (Verified 08/17/25 15:51) sick Penicillins Allergy (Verified 08/17/25 15:51) Hives sulfamethoxazole Adverse Reaction (Unknown, Verified 08/17/25 15:51) Unknown tetracycline Adverse Reaction (Unknown, Verified 08/17/25 15:51) Unknown HPI HPI OV left hand pain: Details: Loan is a 69 year old right hand dominant woman who presents for a NCS review of her left hand numbness. She complains of numbness in all digits of her left hand, including in her small finger. Symptoms intermittent, but daily, worse at night. She says her symptoms began in ~2021/2022, beginning with radiating pain & tingling after receiving an IV in the antecubital fossa. She complained of numbness in this area initially, but when told there was no surgical intervention for this issue, she began to describe numbness radiating down the volar forearm into the small finger. She still complains of painful problems in the antecubital fossa extending proximally and laterally. She also complains of pain & aching in her left distal volar forearm, and the numbness and tingling in her fingers.. She also complains of worsening numbness in her right median nerve distribution. She say she has a Hx of a right carpal tunnel syndrome in the s and these symptoms are similar to what she remembers. [facility] Medical History (Updated 08/17/25 @ 16:12 by Jason Santos) Migraine Stage 3 chronic kidney disease Hypothyroid Borderline diabetes High blood cholesterol High blood pressure Social History (Reviewed 07/12/25 @ 15:00 by Cecily Medeiros [facility]) Housing: Apartment e-Cigarette/Vaping Use: Never Used service: No Current occupational status: retired Current occupational exposures/hazards: No Hearing needs: Yes Review of Systems Const All systems reviewed & are unremarkable except as noted in HPI and below Physical Exam Vital Signs: BMI result Body Mass Index 32.9 Const General: cooperative, healthy appearing and no acute distress Orientation/consciousness: patient oriented x3 HEENT Head: Yes normocephalic and Yes atraumatic Eyes EOM: EOMs intact bilaterally Resp Effort & Inspection: normal respiratory effort and able to speak in complete sentences Cardio Jugular venous distension: no JVD Skin General skin exam: turgor normal Rashes: no rashes Neuro General: patient oriented x3 Extrem Other: Evaluation of Bilateral Upper Extremity: The patient is alert, oriented, and in no acute distress Neuro: She reports some tingling in her bilateral thumbs today in clinic. Normal sensation to all other digits today in clinic. No thenar or intrinsic wasting Good APB muscle belly firing and good finger cross Good ABduction & ADduction Pressing on the left carpal tunnel causes numbness in the left small finger. Vascular: Cap refill brisk ROM: She can make a fist and extend all her digits Skin: No lacerations or abrasions. General: No Ecchymosis. No Erythema or evidence of infection. Nerve Conduction Study: Left-side only IMPRESSION: 1. This is an abnormal study. 2. There is electrodiagnostic evidence for moderate-severe median neuropathy at the wrist, consistent with carpal tunnel syndrome. 3. There is no electrodiagnostic evidence for ulnar neuropathy, brachial plexopathy, or cervical radiculopathy. Thank you for your kind referral. Adeline Mancilla MD, KINSEY 07/15/25 Psych Appearance: grossly normal Affect: normal affect Attitude: cooperative Assessment & Plan Assessment & Plan (1) Left carpal tunnel syndrome: Code(s): G56.02 - Carpal tunnel syndrome, left upper limb Category: Medical (2) Numbness and tingling in left hand: Code(s): R20.0 - Anesthesia of skin; R20.2 - Paresthesia of skin Category: Medical (3) Numbness and tingling in right hand: Code(s): R20.0 - Anesthesia of skin; R20.2 - Paresthesia of skin Category: Medical (4) History of carpal tunnel surgery of right wrist: Code(s): Z98.890 - Other specified postprocedural states Category: Surgical Plan Assessment & Plan: 1. Right hand numbness In the median nerve distribution, decreased subjective sensation in the thumb today Symptoms intermittent, but daily, worse at night This is her chief complaint today and is a new complaint Hx of carpal tunnel release sometime in the I ordered a NCS to assess for peripheral nerve compression She will follow up when completed for review 2. Left carpal tunnel syndrome, moderate-severe Symptoms intermittent, but daily, worse at night Decreased subjective sensation in the thumb today 3. Left hand numbness In the ulnar nerve distribution Symptoms intermittent, but daily, worse at night Please note that thumb compression test over the carpal tunnel caused numbness and tingling immediately in the left small finger 4. Left left antecubital fossa pain and numbness Reportedly from an IV placement about 2 years ago She says she is not interested in discussion surgery at this time, as she needs the use of her hands for the winter months in order to shovel. I explained the risks of delaying treatment and recommend she not wait too long She expressed understanding and will follow up prn to discuss treatment options Scribed for Suzanne Metcalf MD by Jason Santos, biomedical electronics technician, on 08/17/25 at 4:05 PM, EST. Orders: Orders NE nerve conduction velocity Today R20.0 - Anesthesia of skin, R20.2 - Paresthesia of skin NE electromyogram (EMG) Today R20.0 - Anesthesia of skin, R20.2 - Paresthesia of skin Coding Level of Care Code Est Pt Level 4 (76472) Diagnoses Left carpal tunnel syndrome G56.02 Numbness and tingling in left hand R20.0; R20.2 Numbness and tingling in right hand R20.0; R20.2 History of carpal tunnel surgery of right wrist Z98.890
[2025-08-17 15:52] VITALS: BMI 32.9
--- OUTSIDE RECORDS SUMMARY | 2025-08-17 16:56 | XMS_ITS | Clinical Summary ---
Author Organization [facility] Address [address] [place] [address] Care Team Providers Care Merchandise Adjustment Clerk Name Role Phone Isaac Hawkins MD Primary Care Provider [phone] Allergies Active Allergy Reactions Criticality Noted Date [...] Solution None Entered Ac tive Saline Nasal [place] 0.65 % Solution None Entered Active Biotin [...] Insurance MEDICARE PART B MEDICAID Care Teams Merchandise Adjustment Clerk Relationship Specialty Start Date End Date Isaac Hawkins MD [facility] [address] [place] [id number] PCP - General Internal Medicine 03/07/19
--- OUTSIDE RECORDS SUMMARY | 2025-08-17 16:56 | XMS_ITS | Encounter Summary ---
Author Organization [facility] Address [address] [place] [address] Phone Care Team Providers Care Physical Therapist Technician Name Role Phone Cordell Cline MD Unavailable [phone] Mathew Gilbert MD, PhD Unavailable [phone] Unknown, Unknown Primary Care Provider Eldon dickerson Encounter Details Date Type Department Care Team ([facility] st Contact Info) Description 05/24/2025 Telephone [facility] [address] [facility] [address] [place] [address] Xavier Galvez MD [address] [place] [address] [email or web address] Social History Tobacco Use Types Packs/Day Years [...] documented as of this encounter Care Teams Physical Therapist Technician Relationship Specialty Start Date End Date Unknown, Unknown, MD PCP - General 11/08/21 Cordell Cline MD [address] [place] [address] [place] [address] Historical LMR Provider 12/18/18 Mathew Gilbert MD, PhD [address] [place] [address]. [address] [place] [address] [email or web address] Historical LMR Provider 12/18/18 documented as of this encounter Additional Source Comments The information contained in this document represents components of the legal health record. It is not the complete legal health record.[facility]
--- OUTSIDE RECORDS SUMMARY | 2025-08-17 16:56 | XMS_ITS | Encounter Summary ---
Author Organization [facility] Address [address] [place] [address] Phone Care Team Providers Care Car Park Attendant Name Role Phone Nan Diaz PA-C Primary Care Provider [phone] Encounter Details Date Type Department Care Team (Late st Contact Info) Description 04/03/2024 Documentation Only [facility] [address] [place] [address] Ollie Chin DO [address] [facility] [place] [address] Social History Tobacco Use Types [...] on file documented as of this encounter Functional Status documented as of this encounter Plan of Treatment Upcoming Encounters Date Type Department Care Team (Late st Contact Info) Description 03/30/2026 2:00 PM EDT Office Visit [facility] [address] [place] [address] Ollie Chin DO [address] [facility] [place] [address] documented as of this encounter Visit Diagnoses Not on filedocumented in this encounter Care Teams Car Park Attendant Relationship Specialty Start Date End Date Nan Diaz PA-C [address] [place] [address] [phone] PCP - General Internal Medicine 07/24/22 documented as of this encounter
--- OUTSIDE RECORDS SUMMARY | 2025-08-17 16:56 | XMS_ITS | Encounter Summary ---
Author Organization [facility] Address [address] [place] [address] Phone Care Team Providers Care Box Bender Name Role Phone Nan Diaz PA-C Primary Care Provider [phone] Encounter Details Date Type Department Care Team (Late st Contact Info) Description 06/14/2025 Documentation Only [facility] [address] [place] [address] Gloria GilLipan, [place] [address] [place] [address] Social History Tobacco Use Types [...] [facility] [address] [place] [address] Ollie Chin DO [address] [place] [address] [place] [address] documented as of this encounter Visit Diagnoses Not on filedocumented in this encounter Care Teams Box Bender Relationship Specialty Start Date End Date Nan Diaz PA-C [address] [place] [address] [phone] PCP - General Internal Medicine 07/24/22 documented as of this encounter
--- OUTSIDE RECORDS SUMMARY | 2025-08-17 16:56 | XMS_ITS | Clinical Summary ---
Author Organization [facility] Address [address] [facility] [address] [place] [address] Phone Care Team Providers Care Fuller Brush Worker Name Role Phone Cordell Cline MD Unavailable [phone] Mathew Cohen MD, PhD Unavailable [phone] Unknown, Unknown Primary Care Provider Eldon dickerson Allergies Active Allergy Reactions Criticality Noted Date Comments Amoxicillin Unknown High 08/11/2007 Ampicillin Unknown High 08/11/2007 Metronidazole 06/16/2019 House Dust Unknown 03/31/2009 Levothyroxine 03/05/2025 Mold Extracts Unknown 03/31/2009 [place] Unknown 03/31/2009 Peanut Butter Flavor High 06/25/2016 [...] brace image that can be bought on [employer]. Primary osteoarthritis of both knees 05/06/2019 Hypertensive disorder 03/04/2019 Hyperlipidemia 03/04/2019 Depressive disorder 03/04/2019 Encounters Date Type Department Care Team Description 06/07/2025 Refill [facility] Neurology [address] [place] [address] Xavier Galvez MD Medication Refill 05/24/2025 Telephone [facility] Sleep [place] [address] [facility] [address] [place] [address] Xavier Galvez MD from Last 3 Months [...] on patient's age to complete this topic IPV VACCINES Aged Out No longer eligi ble [...] AM EST) Cholesterol 220(H) <200 mg/dL [facility] Triglycerides 105 <150 mg/dL [facility] HDL Cholesterol 55 >50 mg/dL [facility] LDL Cholesterol Calculated 144(H) <100 mg/dL [facility] Chol HDL Ratio 4.0 <5.0 [facility] 09/02/2020 9:17 AM EST us Isaac Hawkins MD LAB BLOOD [place] [address], [facility] [phone] * Mammogram Screening With Tomosynthesis With CAD (Bilateral) (08/05/2020 3:43 PM EDT) Anatomical Region Laterality Modality Breast Left, Breast Right, Breast Bilateral Bila teral Mammography 08/05/2020 3:43 PM EDT Narrative 08/05/2020 3:49 [place] [address] Mammography Report Signed Patient: Loan Martinez MR#: [id number] : 1955 Acct:[id number] Age/Sex: 64 / F ADM Date: 08/05/20 Loc: [facility] Attending Dr: Isaac Hawkins MD Ordering Physician: Isaac Hawkins Results: 0Incomple te: Need additional imaging evaluation Date of Service: 08/05/20 Follow Up: Immediate Follo w-Up Recommended Procedure(s): MM screening combo BI Accession Number(s): [id number] cc: Isaac Hawkins EXAMINATION: BILATERAL SCREENING MAMMOGRAPHY [...] Procedure Note Maxwell Madden MD - 08/05/2020 [facility] [address] [place] [address] Mammography Report Signed Patient: Loan Martinez MR#: [id number] : 5Acct:[id number] Age/Sex: 64 / F ADMDate: 08/05/20 Loc: [facility] Attending Dr: Isaac Hawkins MD Ordering Physician: Isaac HawkinsResults: 0Incomple te: Need additional imaging evaluation Date of Service: 08/05/20Follow Up: Immediate Follo w-Up Recommended Procedure(s): MM screening combo BI Accession Number(s): [id number] cc: Isaac Hawkins EXAMINATION: BILATERAL SCREENING MAMMOGRAPHY [...] Narrative 06/23/2013 1:23 PM EDT Exam Number: [id number] Report Status: Signed Type: BONE DENSITY Date/Time: 06/23/2013 13:23 Ordering Provider: DAVE COHEN REPORT: [address] [address] DXA BONE DENSITY STUDY HISTORY: Estrogen deficiency TECHNIQUE: Bone density measurements of the lumbar spine, hip, and forearm were obtained using a HOLOGIC QDR #[id number]. FINDINGS: L1-L4 BMD= 1.255 g/cm2, which is [...] Date: 06/23/13 Time: 13:36 Dictated: 06/23/131331 Signed: 06/23/13 1336 ---- Electronic Signature on File ---- Signed By: Christo Recinos MD Procedure Note Sys, Conversion Provider Not In - 02/15/2015 Exam Number: [id number] Report Status: Signed Type: BONE DENSITY Date/Time: 06/23/2013 13:23 Ordering Provider: DAVE COHEN REPORT: [address] [address] DXA BONE DENSITY STUDY HISTORY: Estrogen deficiency TECHNIQUE: Bone density measurements of the lumbar spine, hip, and forearm were obtained using a HOLOGIC QDR #[id number]. FINDINGS: L1-L4 BMD= 1.255 g/cm2, which is [...] Time: 13:36 Dictated: 06/23/13 1332 Signed: 06/23/13 133 ---- Electronic Signature on File ---- Signed By: Christo Recinos MD us Mathew Cohen MD, PhD IMG BD BONE DENSITY DEXA Fi nal Result from Last 3 Months or Most Recently Relevant to Health Maintenance Insurance [facility] MEDICARE PPO BLUE REPLACEMENT [address] [place] [phone] Advance Directives For more information, please contact: [phone] (9AM - 5PM [facility], Saturday-Saturday) Documents on File Type Date Recorded Patient Funeral Planner Expl anation Advance Directive - Non Epic LMR 03/30/2009 12:00 AM Care Teams Fuller Brush Worker Relationship Specialty Start Date End Date Unknown, Unknown, MD PCP - General 11/08/21 Cordell Cline MD [address] [place] [address] [place] [address] Historical LMR Provider 12/18/18 Mathew Cohen MD, PhD [address] [place] [address]. [address] [place] [address] [email or web address] Historical LMR Provider 12/18/18 Additional Source Comments The information contained in this document represents components of the legal health record. It is not the complete legal health record.[facility]
--- OUTSIDE RECORDS SUMMARY | 2025-08-17 16:56 | XMS_ITS | Clinical Summary ---
Author Organization [facility], Address [address] [place] [address] [place] [address] Phone Care Team Providers Care Compliance Program Manager Name Role Phone Nan Diaz PA-C Primary Care Provider [phone] Allergies Active Allergy Reactions Criticality Noted Date Comments Amoxicillin Other (see comments) High 08/11/2007 Dust Mite Extract Other (see comments) 03/31/20 09 Metronidazole 06/16/2019 Molds & Smuts Other (see comments) 03/31/2009 Peanut Butter Flavoring Agent (Non-Screening) High 06/25/2016 Penicillins Other (see comments) High 08/11/2007 Other reaction(s): hives Leni [place] Other (see comments) 03/31/20 09 Medications clonazePAM [...] Only [facility] [address] [place] [phone] Trina Gil MA from Last 3 Months [...] Visit [facility] [address] [place] [place] [phone] Ollie Chin DO [address] [place] [address] [place] [phone] Health Maintenance Due Date Last Done Comments Breast Cancer Screening 1955 Pneumococcal Vaccine: 50+ Ye ars (1 of 2 - PCV) 1973 Colorectal Cancer Screening: Annual FOBT 2003 Colorectal Cancer Screening: Colonoscopy 2003 Colorectal Cancer Screening: Sigmoidoscopy 2003 Influenza Vaccine (#1) 2025 07/10/2013 Hepatitis B Vaccine Aged Out No longe r eligible based on patient's age to complete this topic Insurance [address] [place] [address] [facility] [address] [place] [address] [id number] [facility] [address] [place] [address] Care Teams Compliance Program Manager Relationship Specialty Start Date End Date Nan Diaz PA-C [address] [place] [id number] PCP - General Internal Medicine 07/24/22
== END 2025-08-17 16:15 | disposition home or self-care (01) ==
LOC: HO.HOS 15:12
PROVIDERS: Visit Provider Orthopaedic Surgery
DX: G56.02 Carpal tunnel syndrome, left upper limb (principal); R20.0 Anesthesia of skin; R20.2 Paresthesia of skin; Z98.890 Other specified postprocedural states
CPT/HCPCS: 99214

== ENCOUNTER → 2025-08-17 15:11 | Outpatient (BNVA) | payer MEDICARE, SELFPAY | PROVIDERS: Visit Provider Orthopaedic Surgery | DX: G56.02 Carpal tunnel syndrome, left upper limb (principal); R20.0 Anesthesia of skin; R20.2 Paresthesia of skin; Z98.890 Other specified postprocedural states | CPT/HCPCS: 99212 ==

== ENCOUNTER 2025-09-13 12:57 | Outpatient (AMB) | payer MEDICARE, SELFPAY ==
--- NOTE | 2025-09-13 13:09 | A.OFFVIS_ITS ---
Vital Signs 09/13/25 13:15 Height 5 ft 2 in Weight 175 lb BMI 32.0 BP 138/76 Blood Pressure Location Rt brachial Position Sitting Respiration 16 Pulse 65 Pulse Source Pulse Oximeter Pulse Oximetry (%) 100 Oxygen Delivery Method Room Air Intake Visit Reasons: seizures, TIAs Product Marketing Coordinator Required: No Allergies amoxicillin Allergy (Verified 09/13/25 13:16) Hives ampicillin Allergy (Verified 09/13/25 13:16) Hives levothyroxine Allergy (Verified 09/13/25 13:16) Unknown metronidazole (From Flagyl) Allergy (Verified 09/13/25 13:16) sick Penicillins Allergy (Verified 09/13/25 13:16) Hives sulfamethoxazole Adverse Reaction (Unknown, Verified 09/13/25 13:16) Unknown tetracycline Adverse Reaction (Unknown, Verified 09/13/25 13:16) Unknown HPI Comments Details: Loan is a 69-year-old female patient with a past medical history of hyperlipidemia and mood disorder who is presenting for a follow up headache visit. At the time of her last visit she had numerous concerns including TIAs and possible seizure events. She does also have a history of meningioma in the past. She was followed by a neurologist in [facility] in the past and at last visit I did try to attempt to obtain records however I was not successful. She is currently residing in [facility] and decided to establish any Neurology Clinic more locally. At the time of our last visit, she reported having ?low-grade chronic migraines? which started many years ago predominantly affecting the left temporal and retro-orbital area with radiation to her left jaw. Pain occurs on most days and she is not aware of what triggers the pain. She also has a associated swelling of the left eye when she has head pain. She denied any lacrimation or associated congestion or rhinorrhea. She denied any vision changes with her headaches. . She does however have chronic narrow angle glaucoma and cataracts which have played a role in her vision overall. She does note some floaters as well which are chronic. She has associated tinnitus that sounds like static in both ears that gets louder when she has a headache. She does not have nausea, light, or sound sensitivity with her headaches. She also endorses another type of headache described as a pain to the frontal and maxillary areas that is a low grade dull ache. This is a feeling of pressure to these areas. She also notes that with this her eyes feel very heavy. She also notes a burning sensation to her face and around her lips on both sides. She feels that it is warm and red. She denies burning on her tongue or dental pain. She kept having headaches to the right side with pain shooting down her right arm with possible chest heaviness. This led to a diagnosis of TIA . She also notes bilateral tightening of the muscles of both legs that cause a cramp and then that can cause her neck to move back and fourth which she feels was not uncer control. She had an EEG for this but is not aware of the results of this. She called these episodes seizure events. Headache characteristics: Time of onset:> 20 years ago Location: Left temporal and retro-orbital Radiation: Face and jaw Positional component: No Character: Stabbing Severity: Can reach 10/10 fluctuates Duration: Constant Frequency: Constant Acute aggravating factors: Unknown Acute relieving factors: Unknown Associated symptoms: Left eye swelling in tinnitus to the left ear Aura:No Headache triggers:Stress and anxiety Other related background information: Sleep: She reports severe insomnia with inability to fall asleep until late hours of the mornign and she has frequent nightly awakenings. She had intended to have a sleep study compelted but never had one done. Stressors: Stress, anxiety, and depression. She sees a psychiatrist provider for this Hydration:She feels that it is very difficult to drink water Caffeine intake: None/rare Alcohol intake:None Substance use:None Tobacco use:None Last eye exam: Within the last few months. She does have narrow angle glaucoma L>R with surgeries x2 as well as cataracts. Last dental visit: A few days ago. She reports remotr history of grinding but not recenly that she is aware of. Past medication trials: Candasartan- Taking for BP but not benefiting her headaches Duloxetine- Taking for moods but not benefiting her headaches Lamotrigine- Taking for moods but not benefiting her headaches Prior workup: Pending records from prior neurologist [facility], [facility] Medical History (Updated 09/13/25 @ 13:27 by Priscilla Dumont CNP) Migraine Stage 3 chronic kidney disease Hypothyroid Borderline diabetes High blood cholesterol High blood pressure Social History Housing: Apartment e-Cigarette/Vaping Use: Never Used service: No Current occupational status: retired Current occupational exposures/hazards: No Hearing needs: Yes Review of Systems Const All systems reviewed & are unremarkable except as noted in HPI and below Physical Exam Vital Signs: Last Vital Signs Pulse 65 09/13/25 13:15 Resp 16 09/13/25 13:15 BP 138/76 09/13/25 13:15 Pulse Ox 100 09/13/25 13:15 Oxygen Delivery Method Room Air 09/13/25 13:15 BMI result Body Mass Index 32.0 Const General: cooperative, healthy appearing, comfortable and no acute distress Nutritional Appearance: well nourished Orientation/consciousness: patient oriented x3 Limitations: no limitations HEENT Head: Yes normal to inspection and Yes normocephalic Eyes General: appearance normal, both eyes and all related structures Visual Bardales: normal visual bardalse by confrontation Alignment and Position: alignment normal Periorbital: periorbital findings normal Eyelids: Yes eyelids normal Conjunctivae: conjunctivae normal Sclerae: sclerae normal Back/Spine/Pelvis Other: Bilateral trapezius trigger points and left sided occipital notch tenderness Neuro General: patient oriented x3, tone normal and deep tendon reflexes 2+ bilaterally Cranial nerves: Yes CN's II-XII intact bilaterally and Yes Facial sensation intact/muscles of mastication intact Cognition (Neuro): normal cognition Gait exam (Neuro): Normal gait present Motor exam (neuro): 5/5 motor strength present throughout and no tremor noted Sensory Exam: double simultaneous stimulation for sensation normal Romberg Test: Negative Pupils: Normal pupillary reactivity/response: bilateral Psych Appearance: grossly normal Mental Status: mental status grossly normal Speech and movement: Normal speech and movement present and Clear speech present Affect: normal affect Attitude: cooperative Thought process: Normal thought process present Thought content: Normal thought content present Insight: Good insight present (Psych) Judgement: Good judgement present (Psych) Assessment & Plan Assessment & Plan (1) Left-sided headache: Code(s): R51.9 - Headache, unspecified Category: Medical (2) Aphasia: Code(s): R47.01 - Aphasia Category: Medical (3) Muscle twitching: Code(s): R25.3 - Fasciculation Category: Medical (4) Occipital neuralgia of left side: Code(s): M54.81 - Occipital neuralgia Category: Medical (5) Trigger point of shoulder region: Code(s): M25.519 - Pain in unspecified shoulder Category: Medical Plan Loan is a 69-year-old female patient with a past medical history of hyperlipidemia and mood disorder who is presenting today for a follow up visit. Headaches are likely multifactorial. I would consider migraine is possibility. She does interestingly have some swelling to the left eye raising some concern for TAC. She does however have occipital notch tenderness on the left side raising concern for TTH. She may benefit from trigger point and occipital nerve block injections. We did discuss options for oral agents however due to concurrent use of other medications and her desire to refrain from oral agents (see above list of current medications). I would like to consider a once monthly anti CGRP injectable. I will place orders for Emgality. In regards to the reports of episodic muscle stiffness, this does not sound classic of seizure activity however we should reasonably obtain records from her prior Neurology team. These events are occurring slightly more frequently. I will put order in for routine EEG for further evaluation. -EEG -attempt to obtain prior EEG from outside Neurology team at [facility] -start a trial of Emgality including loading dose and maintenance dosing -follow up in 2-3 months or sooner if needed Orders: Orders EEG Routine Today R25.3 - Fasciculation, R47.01 - Aphasia, R51.9 - Headache, unspecified Medications: New galcanezumab-gnlm (Emgality Pen) Loading dose 240 mg (2 mL) subcut ONCE 2 mL 0RF galcanezumab-gnlm (Emgality Pen) 120 mg subcut QMONTH 1 mL 4RF Coding Level of Care Code Est Pt Level 4 (21568) Diagnoses Left-sided headache R51.9 Aphasia R47.01 Muscle twitching R25.3 Occipital neuralgia of left side M54.81 Trigger point of shoulder region M25.519
[2025-09-13 13:15] VITALS: BP 138/76; PULSE 65; RESP 16; O2SAT 100; BMI 32.0
--- OUTSIDE RECORDS SUMMARY | 2025-09-13 21:44 | XMS_ITS | Clinical Summary ---
Author Organization [facility] Address [address] [place] [address] Care Team Providers Care X Ray Equipment Tester Name Role Phone Isaac Hawkins MD Primary Care Provider [phone] Allergies Active Allergy Reactions Criticality Noted Date [...] Solution None Entered Ac tive Saline Nasal [place] 0.65 % Solution None Entered Active Biotin [...] Insurance MEDICARE PART B MEDICAID Care Teams X Ray Equipment Tester Relationship Specialty Start Date End Date Isaac Hawkins MD [facility] [address] [place] [id number] PCP - General Internal Medicine 03/07/19
== END 2025-09-13 13:49 | disposition home or self-care (01) ==
LOC: HO.HSM 12:58
PROVIDERS: Visit Provider Nurse Practitioner
DX: R51.9 Headache, unspecified (principal); R47.01 Aphasia; R25.3 Fasciculation; M54.81 Occipital neuralgia; M25.519 Pain in unspecified shoulder
CPT/HCPCS: 99214

== ENCOUNTER → 2025-09-13 12:57 | Outpatient (BNVA) | payer MEDICARE, SELFPAY | PROVIDERS: Visit Provider Nurse Practitioner | DX: M54.81 Occipital neuralgia (principal); R51.9 Headache, unspecified; R47.01 Aphasia; R25.3 Fasciculation; M25.511 Pain in right shoulder; M25.512 Pain in left shoulder | CPT/HCPCS: 99212 ==

== ENCOUNTER 2025-09-21 15:06 | Outpatient (REF) | payer MEDICARE, SELFPAY ==
--- NOTE | 2025-09-21 16:25 | EEG_ITS ---
History: Patient reported having ?low-grade chronic migraines? which started many years ago predominantly affecting the left temporal and retro-orbital area with radiation to her left jaw. Pain occurs on most days and she is not aware of what triggers the pain. She also has a associated swelling of the left eye when she has head pain. She denied any lacrimation or associated congestion or rhinorrhea. She denied any vision changes with her headaches. . She does however have chronic narrow angle glaucoma and cataracts which have played a role in her vision overall. She does note some floaters as well which are chronic. She has associated tinnitus that sounds like static in both ears that gets louder when she has a headache. She does not have nausea, light, or sound sensitivity with her headaches. She also endorses another type of headache described as a pain to the frontal and maxillary areas that is a low grade dull ache. This is a feeling of pressure to these areas. She also notes that with this her eyes feel very heavy. She also notes a burning sensation to her face and around her lips on both sides. She feels that it is warm and red. She denies burning on her tongue or dental pain. She kept having headaches to the right side with pain shooting down her right arm with possible chest heaviness. This led to a diagnosis of TIA . Medication: no list available Technical Description Photic Stimulation: completed Hyperventilation: omitted Behavioral State: pleasant State of Consciousness: awake Skull Defect: none Sedation: none Handedness: right Duration: 31 min 18 sec Zigzag Stitcher Comments: Last Meal: 09/21 12 pm Time / date of last symptom: 09/16/2025 Description: This is a 16 channel EEG with an EKG lead. Patient is reported awake during the tracing. Background EEG rhythm is symmetric alpha of low amplitude posteriorly lower amplitude fast anteriorly. Intermittently might slowing is noted. Frequent lead and muscle artifacts are noted. Photic stimulation does not produce any significant abnormality. Hyperventilation is not performed. Cardiac lead did not reveal any significant abnormality. No obvious sharp wave spikes or paroxysmal tendency noted. Impression: No significant abnormality noted on this EEG. MTDD
--- OUTSIDE RECORDS SUMMARY | 2025-09-21 19:26 | XMS_ITS | Clinical Summary ---
Author Organization [facility] Address [address] [place] [address] Care Team Providers Care Frit Coater Name Role Phone Isaac Hawkins MD Primary Care Provider [phone] Allergies Active Allergy Reactions Criticality Noted Date [...] Solution None Entered Ac tive Saline Nasal [place] 0.65 % Solution None Entered Active Biotin [...] Insurance MEDICARE PART B MEDICAID Care Teams Frit Coater Relationship Specialty Start Date End Date Isaac Hawkins MD [facility] [address] [place] [phone] PCP - General Internal Medicine 03/07/19
--- OUTSIDE RECORDS SUMMARY | 2025-09-21 19:26 | XMS_ITS | Encounter Summary ---
Author Organization [facility] Address [address] [place] [address] Phone Care Team Providers Care Impregnation Operator Name Role Phone Cordell Cline MD Unavailable [phone] Mathew Gilbert MD, PhD Unavailable [phone] Unknown, Unknown Primary Care Provider Eldon dickerson Encounter Details Date Type Department Care Team ([facility] st Contact Info) Description 05/24/2025 Telephone [facility] [address] [facility] [address] [place] [address] Xavier Galvez MD [address] [place] [address] [email or web address] Social History Tobacco Use Types Packs/Day Years [...] documented as of this encounter Care Teams Impregnation Operator Relationship Specialty Start Date End Date Unknown, Unknown, MD PCP - General 11/08/21 Cordell Cline MD [address] [place] [address] [place] [address] Historical LMR Provider 12/18/18 Mathew Gilbert MD, PhD [address] [place] [address]. [address] [place] [address] [email or web address] Historical LMR Provider 12/18/18 documented as of this encounter Additional Source Comments The information contained in this document represents components of the legal health record. It is not the complete legal health record.[facility]
--- OUTSIDE RECORDS SUMMARY | 2025-09-21 19:26 | XMS_ITS | Clinical Summary ---
Author Organization [facility] Address [address] [address] [facility] [address] [place] [address] Phone Care Team Providers Care Political Advisor Name Role Phone Cordell Cline MD Unavailable [phone] Mathew Cohen MD, PhD Unavailable [phone] Unknown, Unknown Primary Care Provider Eldon dickerson Allergies Active Allergy Reactions Criticality Noted Date Comments Amoxicillin Unknown High 08/11/2007 Ampicillin Unknown High 08/11/2007 Metronidazole 06/16/2019 House Dust Unknown 03/31/2009 Levothyroxine 03/05/2025 Mold Extracts Unknown 03/31/2009 Marcellus Unknown 03/31/2009 Peanut Butter Flavor High 06/25/2016 [...] brace image that can be bought on [employer]. Primary osteoarthritis of both knees 05/06/2019 Hypertensive disorder 03/04/2019 Hyperlipidemia 03/04/2019 Depressive disorder 03/04/2019 Immunizations Immunization Administration Dates Next Due COVID-19 [...] 9:17 AM EST) Cholesterol 220(H) <200 mg/dL [facility] Triglycerides 105 <150 mg/dL [facility] HDL Cholesterol 55 >50 mg/dL [facility] LDL Cholesterol Calculated 144(H) <100 mg/dL [facility] Chol HDL Ratio 4.0 <5.0 [facility] 09/02/2020 9:17 AM EST us Isaac Hawkins MD LAB BLOOD BKR ORDERABLES Final Result Performing Organization Address City/State/[facility] [place] [address], [facility] [phone] * Mammogram Screening With Tomosynthesis With CAD (Bilateral) (08/05/2020 3:43 PM EDT) Anatomical Region Laterality Modality Breast Left, Breast Right, Breast Bilateral Bila teral Mammography 08/05/2020 3:43 PM EDT Narrative 08/05/2020 3:49 [place] [address] Mammography Report Signed Patient: Loan Martinez MR#: [id number] : 1955 Acct:[id number] Age/Sex: 64 / F ADM Date: 08/05/20 Loc: [facility] Attending Dr: Isaac Hawkins MD Ordering Physician: Isaac Hawkins Results: 0Incomple te: Need additional imaging evaluation Date of Service: 08/05/20 Follow Up: Immediate Follo w-Up Recommended Procedure(s): MM screening combo BI Accession Number(s): [id number] cc: Isaac Hawkins EXAMINATION: BILATERAL SCREENING MAMMOGRAPHY [...] Procedure Note Maxwell Madden MD - 08/05/2020 [facility] [address] [place] [address] Mammography Report Signed Patient: Loan Martinez MR#: [id number] : 5Acct:[id number] Age/Sex: 64 / F ADMDate: 08/05/20 Loc: [facility] Attending Dr: Isaac Hawkins MD Ordering Physician: Isaac HawkinsResults: 0Incomple te: Need additional imaging evaluation Date of Service: 08/05/20Follow Up: Immediate Follo w-Up Recommended Procedure(s): MM screening combo BI Accession Number(s): [id number] cc: Isaac Hawkins EXAMINATION: BILATERAL SCREENING MAMMOGRAPHY [...] Maxwell Madden MD in OV> 08/05/20 1548 Isaac Hawkins MD IMG MG EXAMS Final Result * DXA Peripheral (06/23/2013 1:23 PM EDT) Anatomical Region Laterality Modality Bone Density Bone Density 06/23/2013 1:23 PM EDT Narrative 06/23/2013 1:23 PM EDT Exam Number: [id number] Report Status: Signed Type: BONE DENSITY Date/Time: 06/23/2013 13:23 Ordering Provider: DAVE COHEN REPORT: [address] [address] DXA BONE DENSITY STUDY HISTORY: Estrogen deficiency TECHNIQUE: Bone density measurements of the lumbar spine, hip, and forearm were obtained using a HOLOGIC QDR #[id number]. FINDINGS: L1-L4 BMD= 1.255 g/cm2, which is [...] Provider Not In - 02/15/2015 Exam Number: [id number] Report Status: Signed Type: BONE DENSITY Date/Time: 06/23/2013 13:23 Ordering Provider: DAVE COHEN REPORT: [address] [address] DXA BONE DENSITY STUDY HISTORY: Estrogen deficiency TECHNIQUE: Bone density measurements of the lumbar spine, hip, and forearm were obtained using a HOLOGIC QDR #[id number]. FINDINGS: L1-L4 BMD= 1.255 g/cm2, which is [...] 06/23/13 Time: 13:36 Dictated: 06/23/13 1332 Signed: 06/23/131335 ---- Electronic Signature on File ---- Signed By: Christo Recinos MD Mathew Cohen MD, PhD IMG BD BONE DENSITY DEXA Fi nal Result from Last 3 Months or Most Recently Relevant to Health Maintenance Insurance [employer] [place] MEDIC[place] PPO BLUE REPLACEMENT [facility] MEDICARE PPO BLUE REPLACEMENT [address] [place] [address] [id number] [place] [id number] [place] [phone] [place] [id number] Advance Directives For more information, please contact: [phone] (9AM - 5PM [facility], Saturday-Saturday) Documents on File Type Date Recorded Patient Director Of Medicare Expl anation Advance Directive - Non Epic LMR 03/30/2009 12:00 AM Care Teams Political Advisor Relationship Specialty Start Date End Date Unknown, Unknown, MD PCP - General 11/08/21 Cordell Cline MD [address] [place] [address] [place] [address] Historical LMR Provider 12/18/18 Mathew Cohen MD, PhD [address] [place] [address]. [address] [place] [address] [email or web address] Historical LMR Provider 12/18/18 Additional Source Comments The information contained in this document represents components of the legal health record. It is not the complete legal health record.[facility]
== END 2025-09-21 15:07 | disposition home or self-care (01) ==
LOC: HO.NEURO 15:06
PROVIDERS: Visit Provider Nurse Practitioner
DX: R25.3 Fasciculation (principal); R51.9 Headache, unspecified; R47.01 Aphasia
CPT/HCPCS: 95816

== ENCOUNTER → 2025-09-21 16:25 | Outpatient (BNV) | payer MEDICARE, SELFPAY | PROVIDERS: Visit Provider Psychiatry & Neurology Neurology | DX: R51.9 Headache, unspecified (principal) | CPT/HCPCS: 95816 ==